=== PATIENT | male | born 1945 | race Caucasian/White ===

== ENCOUNTER 2021-09-28 09:10 | Outpatient (REF) | payer MEDICARE, SELFPAY ==
--- NOTE | 2021-09-28 14:47 | MHC.AU.AEV ---
Adult Audiological Evaluation Date of Visit: 09/28/21 Reason for Appointment: To determine if there has been a change in hearing. Patient reports that he was hospitalized twice for COVID-19. Since then, he has been experiencing memory deficits, and he suspects his hearing has changed as well. He has a pair of Rexton ISAMAR hearing aids he obtained from [employer] approximately 8-9 years ago. Has hearing been tested previously?: Yes Previous Hearing Test Results: At this clinic in 2009- Normal sloping to moderate sensorineural hearing loss bilaterally Hearing Handicap Inventory Does a hearing problem cause you to feel embarrassed when meeting new people?: Yes Does a hearing problem cause you to feel frustrated when talking to members of your family?: Yes Do you have difficulty when someone speaks in a whisper?: Yes Do you feel handicapped by a hearing problem?: Sometimes Does a hearing problem cause you difficulty when visiting friends, relatives, or neighbors?: Yes Does a hearing problem cause you to attend sabianism service services less often than you would like?: No Does a hearing problem cause you to have arguments with family members?: No Does a hearing problem cause you difficulty when listening to TV or radio?: Yes Do you feel that any difficult with your hearing limits or hampers your personal or social life?: Yes Does a hearing problem cause you difficulty when in a restaurants with relatives or friends?: Yes HHIE SCORE: 30 Based on HHIE score, patient has: Severe perceived hearing handicap Ear History: Ear Deformity: None Reported Recent Ear Drainage: None Reported Recent Ear Pain: None Reported Family History of Hearing Loss?: Yes: Father Recent Ear Infections: None Reported Ear Infections in Childhood: None Reported History of Ear Wax Buildup: None Reported Previous Ear Surgery: None Reported Bothersome Tinnitus/Ringing/Noises in Ears: None Reported Ear used on the phone: Right Ear Blocked/Full Sensation in Ear(s): None Reported History of occupational noise exposure?: No History: Yes: [employer]- 2 Years Medical History: Medical History: Hospitalized twice for COVID-19- continues to experience complications including memory deficits Otoscopy: Right Ear: Unremarkable Left Ear: Unremarkable Tympanometry: Tympanometry performed due to: To assess integrity of the middle ear system Right Ear: Reduced Middle Ear Compliance (Type As) Left Ear: Normal Middle Ear System (Type A) Hearing Evaluation: Transducer(s) Used: Insert Earphones Method: Conventional Audiometry Stimuli Used: Pure Tones Right Ear: Description of Hearing: Borderline-normal sloping to severe sensorineural hearing loss Left Ear: Description of Hearing: Borderline-normal sloping to moderately-severe sensorineural hearing loss Speech Recognition Threshold (SRT): Method Used: Recorded Lists Stimuli Used: Spondee Words Right Ear: 30 dBHL Left Ear: 30 dBHL Word Discrimination: Method: Recorded Lists Word Lists Used:: W-22 Right Ear: 72% at 75 dBHL Left Ear: 96% at 75 dBHL Binaural in noise (+10 SNR): 72% at 75 dBHL Most Comfortable Level (MCL): Right Ear: 75 dBHL Left Ear: 70 dBHL Comparison: Compared to most recent evaluation: Thresholds have decreased bilaterally since the 2010 evaluation. Recommendations: Audiological re-evaluation in one year. Patient's hearing aids were given a quick cleaning. The hearing aids cannot be reprogrammed at our clinic, due to their proprietary software. The retention tails were removed at patient's request. The domes were brittle due to their age and could not snap back onto the receivers. We do not stock Rexton domes. For now, large Cole open domes were placed on the receivers, as they fit securely. The hearing aids sound weak, but I cannot determine if this is due to a problem with the hearing aids or if they are programmed with low gain. Discussed the possibilities of obtaining new hearing aids or seeing if his current ones can be inspected/reprogrammed. He would like to first address his current hearing aids before considering new ones. Recommended next steps: -First, call [employer] to say that a recent hearing test showed a decrease in hearing and you would like the hearing aids reprogrammed with the updated results. Ask if there is a cost for the services and if an appointment is needed. Bring a copy of today's hearing test. -If interested in new hearing aids, call your insurance to ask if your plan has any hearing aid benefits. Given your history, you may also want to contact the [facility] to determine if you are eligible for [facility] aid services. -If you would like to proceed with new hearing aids at our clinic, contact us at [phone] to schedule a hearing aid evaluation, where you can demo a pair of hearing aids and talk more in depth about the different options. Diagnosis: Primary Diagnosis: H90.3 Bilateral Sensorineural Hearing Loss Signature: Provider: Ladi Maya, FAROOQ-A
== END 2021-09-28 09:11 | disposition home or self-care (01) ==
LOC: HO.SH 09:10
PROVIDERS: Visit Provider Internal Medicine
DX: Z01.118 Encounter for examination of ears and hearing with other abnormal findings (principal); H90.3 Sensorineural hearing loss, bilateral
CPT/HCPCS: 92557; 92567

== ENCOUNTER 2021-10-04 11:41 | Outpatient (REF) | payer MEDICARE, SELFPAY ==
--- NOTE | ~2021-10-04 | XR_ITS ---
EXAMINATION: XR HAND, BILATERAL XR HIP, LEFT CLINICAL INFORMATION: Left hip pain. Bilateral hand pain. COMPARISON: None TECHNIQUE: Bilateral hand 3 views each. Left hip 2 views. FINDINGS: LEFT HIP: There is no visible acute fracture, dislocation or subluxation. No bony erosive changes. The soft tissues are normal. LEFT HAND: There is no visible acute fracture, dislocation or subluxation. There is loss of PIP and DIP joint space with mild periarticular spurring DIP joint 5th digit. There is minimal bony erosive changes DIP joint 3rd digit. No additional bony erosive changes seen. No abnormal soft tissue swelling. RIGHT HAND: There is mild loss of PIP and DIP joint space all digits without periarticular spurring or joint effusion. No bony erosive changes. No soft tissue swelling. XR/XR hip LT min 2V IMPRESSION: Unremarkable left hip exam. Mild degenerative changes PIP and DIP joints both hands with minimal periarticular spurring DIP joint 5th digit left hand. 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
--- NOTE | ~2021-10-04 | XR_ITS ---
EXAMINATION: XR HAND, BILATERAL XR HIP, LEFT CLINICAL INFORMATION: Left hip pain. Bilateral hand pain. COMPARISON: None TECHNIQUE: Bilateral hand 3 views each. Left hip 2 views. FINDINGS: LEFT HIP: There is no visible acute fracture, dislocation or subluxation. No bony erosive changes. The soft tissues are normal. LEFT HAND: There is no visible acute fracture, dislocation or subluxation. There is loss of PIP and DIP joint space with mild periarticular spurring DIP joint 5th digit. There is minimal bony erosive changes DIP joint 3rd digit. No additional bony erosive changes seen. No abnormal soft tissue swelling. RIGHT HAND: There is mild loss of PIP and DIP joint space all digits without periarticular spurring or joint effusion. No bony erosive changes. No soft tissue swelling. XR/XR hand RT min 3V IMPRESSION: Unremarkable left hip exam. Mild degenerative changes PIP and DIP joints both hands with minimal periarticular spurring DIP joint 5th digit left hand. 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
--- NOTE | ~2021-10-04 | XR_ITS ---
EXAMINATION: XR HAND, BILATERAL XR HIP, LEFT CLINICAL INFORMATION: Left hip pain. Bilateral hand pain. COMPARISON: None TECHNIQUE: Bilateral hand 3 views each. Left hip 2 views. FINDINGS: LEFT HIP: There is no visible acute fracture, dislocation or subluxation. No bony erosive changes. The soft tissues are normal. LEFT HAND: There is no visible acute fracture, dislocation or subluxation. There is loss of PIP and DIP joint space with mild periarticular spurring DIP joint 5th digit. There is minimal bony erosive changes DIP joint 3rd digit. No additional bony erosive changes seen. No abnormal soft tissue swelling. RIGHT HAND: There is mild loss of PIP and DIP joint space all digits without periarticular spurring or joint effusion. No bony erosive changes. No soft tissue swelling. XR/XR hand LT 2V IMPRESSION: Unremarkable left hip exam. Mild degenerative changes PIP and DIP joints both hands with minimal periarticular spurring DIP joint 5th digit left hand. 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
== END 2021-10-04 11:42 | disposition home or self-care (01) ==
LOC: HO.XRAY 11:41
PROVIDERS: PCP Internal Medicine; Visit Provider Internal Medicine
DX: M25.552 Pain in left hip (principal); M79.641 Pain in right hand; M79.642 Pain in left hand
CPT/HCPCS: 73120; 73130; 73502

== ENCOUNTER 2022-07-19 15:44 | Outpatient (REF) | payer MEDICARE, SELFPAY ==
[2022-07-19 17:09] LABS: Vitamin B12 280 pg/mL (200-900)
== END 2022-07-19 15:45 | disposition home or self-care (01) ==
LOC: HO.LAB 15:44
PROVIDERS: PCP Internal Medicine; Visit Provider Psychiatry & Neurology Neurology
DX: G31.84 Mild cognitive impairment of uncertain or unknown etiology (principal)
CPT/HCPCS: 36415; 82607

== ENCOUNTER 2022-07-25 15:03 | Outpatient (REF) | payer MEDICARE, SELFPAY ==
--- NOTE | ~2022-07-25 | US_ITS ---
EXAMINATION: US EXTRACRANIAL CAROTID DUPLEX, BILATERAL CLINICAL INFORMATION: Pulsation in the neck. COMPARISON: None TECHNIQUE: Real-time ultrasound and Doppler techniques (integrating B-mode 2-D vascular images, Doppler spectral analysis and color-flow Doppler imaging) were utilized to interrogate the extracranial carotid arteries, the vertebral arteries and proximal subclavian arteries bilaterally. The degree of stenosis is determined by criteria similar to NASCET. FINDINGS: Right Side: 1. There is mild atherosclerotic plaque seen in the bifurcation/proximal ICA region. 2. The common carotid artery PSV proximally is 86 cm/s and distally 62 cm/s. 3. The proximal internal carotid artery velocities are 33 cm/s systolic and 11 cm/s diastolic. 4. The proximal external carotid artery PSV is 98 cm/s. 5. The vertebral artery shows antegrade flow. 6. The subclavian artery waveforms are normal. Left Side: 1. There is mild atherosclerotic plaque seen in the bifurcation/proximal ICA region. 2. The common carotid artery PSV proximally is 88 cm/s and distally 78 cm/s. 3. The proximal internal carotid artery velocities are 68 cm/s systolic and 22 cm/s diastolic. 4. The proximal external carotid artery PSV is 74 cm/s. 5. The vertebral artery shows antegrade flow. 6. The subclavian artery waveforms are normal. US/US carotid duplex BI IMPRESSION: 1. RIGHT: Minimal, non-hemodynamically significant stenosis of the proximal right internal carotid artery corresponding to a 0-49% stenosis by velocity criteria. 2. LEFT: Minimal, non-hemodynamically significant stenosis of the proximal left internal carotid artery corresponding to a 0-49% stenosis by velocity criteria.
== END 2022-07-25 15:04 | disposition home or self-care (01) ==
LOC: HO.US 15:03
PROVIDERS: PCP Internal Medicine; Visit Provider Psychiatry & Neurology Neurology
DX: I65.23 Occlusion and stenosis of bilateral carotid arteries (principal)
CPT/HCPCS: 93880

== ENCOUNTER 2023-10-18 12:37 | Outpatient (REF) | payer MEDICARE, SELFPAY ==
--- NOTE | ~2023-10-18 | US_ITS ---
EXAMINATION: US SCROTUM CLINICAL INFORMATION: Left testicular pain with question of testicular torsion. COMPARISON: CT abdomen pelvis 11/11/2017, scrotal ultrasound 01/14/2018 TECHNIQUE: A sonogram of the scrotum was performed assessing noyola-scale appearance and color Doppler flow. Spectral Doppler analysis of the arterial and venous flow were performed in the testes bilaterally. FINDINGS: RIGHT: Right testicle measures 5.3 x 2.6 x 2.8 cm, volume 20.2 mL. A small appendix testis is noted. No focal testicular parenchymal lesions are visualized. Spectral Doppler analysis of the arterial and venous flow is normal in the right testis. Right epididymal head is normal in size. No right hydrocele or varicocele is seen. Right epididymal Doppler flow is normal. LEFT: Left testicle measures 3.9 x 2.5 x 3.0 cm, volume 15.1 mL. No focal testicular parenchymal lesions are visualized aside from a single tiny punctate calcification just below the cortex. A small appendix testis is noted. Spectral Doppler analysis of the arterial and venous flow is normal in the left testis. Left epididymal head is normal in size but the tail appears increased in size and hypervascular. There is a small left hydrocele present along with a varicocele is seen. Of note, there is a hyperechoic mass with some vascularity and some rounded ovoid hypoechoic structures within it lateral to the left testis.. This appears to extend at least from the top of the testis to the bottom of the testis. This possibly represents a fat-containing scrotal hernia. On the 12/18/2017 CT scan, a left inguinal hernia was seen with some fat stranding. US/US scrotum doppler IMPRESSION: 1. No evidence of testicular torsion. 2. Possible left epididymitis. 3. Small Left-sided varicocele. 4. There is what appears to be a fat-containing left scrotal hernia. CT scan of the pelvis would be useful for further evaluation. If for any reason the CT scan is done, this should extend beyond the scrotal sac.
[2023-10-18 14:03] LABS: MANUAL DIFF FLAG NO
[2023-10-18 14:52] LABS: Basophils Absolute Auto 0.1 X10*3/uL (0.0-0.2); Basophils Percent Auto 0.4 % (0-2); Eosinophils Absolute Auto 0.2 X10*3/uL (0.0-0.4); Eosinophils Percent Auto 1.4 % (0-4); Hematocrit 43.6 % (42.0-52.0); Hemoglobin 13.5 g/dl (14.0-18.0); Imm Gran Abs Auto 0.04 X10*3/uL (0.00-0.03); Imm Gran Pct Auto 0.3 % (0.0-0.4); Lymphocytes Absolute Auto 1.6 X10*3/uL (1.2-4.9); Lymphocytes Percent Auto 13.4 % (20-40); Mean Corpuscular Hemoglobin 20.3 pg (27.0-33.0); Mean Corpuscular Volume 65.7 fL (80.0-98.0); Mean Platelet Volume 9.8 fL (9.4-12.4); Monocytes Absolute Auto 1.1 X10*3/uL (0.1-1.2); Monocytes Percent Auto 9.5 % (2-11); Platelet Count 192 X10*3/uL (160-400); Red Blood Count 6.64 X10*6/uL (4.60-5.80); Red Cell Distribution Width 20.6 % (11.0-16.0)
== END 2023-10-18 12:38 | disposition home or self-care (01) ==
LOC: HO.US 12:37
PROVIDERS: PCP Internal Medicine; Visit Provider Internal Medicine
DX: R53.83 Other fatigue (principal); N50.82 Scrotal pain
CPT/HCPCS: 36415; 76870; 85025; 93975

== ENCOUNTER 2023-10-22 15:39 | Outpatient (REF) | payer MEDICARE, SELFPAY ==
[2023-10-22 16:10] LABS: Blood Urea Nitrogen 21 mg/dL (9-16); Estimated Glomerular Filt Rate > 60
== END 2023-10-22 15:40 | disposition home or self-care (01) ==
LOC: HO.LAB 15:39
PROVIDERS: PCP Internal Medicine; Visit Provider Internal Medicine
DX: R53.83 Other fatigue (principal)
CPT/HCPCS: 36415; 82565; 84520

== ENCOUNTER 2023-10-23 14:02 | Outpatient (REF) | payer MEDICARE, SELFPAY ==
--- NOTE | ~2023-10-23 | CT_ITS ---
EXAMINATION: CT PELVIS WITH CONTRAST CLINICAL INFORMATION: Hernia/mass. COMPARISON: CT abdomen and pelvis 12/08/2017. TECHNIQUE: Helical scanning was performed with submillimeter collimation through the pelvis with the use of oral contrast and during bolus intravenous injection of 85 mL of Omnipaque 350 intravenous contrast. Sagittal and coronal multiplanar 2-D reconstructions were obtained. This CT examination was performed using dose optimization techniques as appropriate, variously including the following: *Automated exposure control *Adjustment of mA and/or kV according to patient size (this includes techniques or standardized protocols for targeted exams where dose is matched to indication/reason for exam; i.e. extremities or head) *Use of iterative reconstruction technique DLP: 612 mGy-cm. FINDINGS: There is a tiny periumbilical hernia seen containing only fat, unchanged when compared to 12/08/2017. There are small bilateral indirect inguinal hernias seen containing only fat, left greater than right. There is moderate BPH with prostate measuring 90 mL in volume, with a prominent median lobe. The visualized bowel is unremarkable aside from a few scattered colonic diverticula. The appendix is small and unremarkable. No free pelvic fluid. Degenerative changes are seen in the included portions of the lumbosacral spine. No bony destructive lesions. No retroperitoneal lymphadenopathy. Calcific atherosclerotic changes are present in the aorta and iliofemoral vessels. There is no evidence of an abdominal aortic aneurysm. CT/CT pelvis w IV con IMPRESSION: 1. Small bilateral indirect inguinal hernias containing only fat, left greater than right. 2. Tiny periumbilical hernia containing only fat. 3. Moderate BPH.
[2023-10-23] MEDS: iohexoL 350 MG/ML 100 ML INFUS..BTL IV (14:55)
== END 2023-10-23 14:03 | disposition home or self-care (01) ==
LOC: HO.CT 14:02
PROVIDERS: PCP Internal Medicine; Visit Provider Internal Medicine
DX: K40.90 Unilateral inguinal hernia, without obstruction or gangrene, not specified as recurrent (principal)
CPT/HCPCS: 72193; Q9967

== ENCOUNTER 2023-12-05 10:57 | Outpatient (AMB) | payer MEDICARE, SELFPAY ==
--- NOTE | 2023-12-05 11:00 | MHC.OFFVIS ---
Intake Visit Reasons: epididymitis/varicocele/hydrocele/scrotal hernia Intake Note: Patient is present for epididymitis/varicocele/hydrocele/scrotal hernia Urology Medication:none Antibiotic Allergy:none Blood Thinner:none Batchmaker Required: No Allergies No Known Allergies Allergy (Mild, Verified 12/05/23 13:11) NOT APPLICABLE Medication List - Last Reconciled 12/05/23 by SONALI Carrion losartan 100 mg PO DAILY methylphenidate HCl mg PO metoprolol succinate ER 100 mg PO DAILY metoprolol succinate ER 50 mg PO DAILY triamcinolone acetonide 0.1% 1 appl topical BID-TID HPI Comments Details: Sukhdeep is a 78-year-old male patient of Dr. Siegel who was accompanied by his ex- at today's office visit. He has a past medical history of high blood pressure. He presents to the office today as a new patient for an enlarged prostate and varicoceles. In discussion with the patient today he reports and believes today's appointment is for assessment of his skin. Throughout today's appointment he continues to discuss ongoing issues with his skin that he believes are related to his cat. He continues to perseverate on this issue. In review of patient's chart it appears scrotal ultrasound and pelvic CT were ordered by his PCP as he had been having scrotal discomfort. He reports this has since subsided. His main concern is his ongoing generalized rash she has been experiencing. These imaging results were reviewed with the patient today. Scrotal ultrasound 10/25 no evidence of testicular torsion, possible left epididymitis, small left-sided varicocele, and there is what appears to be fat containing left scrotal hernia at which time scrotal ultrasound results recommending further CT for further assessment and evaluation. CT pelvis notes small bilateral indirect inguinal hernias containing only fat, left greater than right. Tiny periumbilical hernia containing only fat. Moderate BPH as prostate measures approximately [address] of the pelvis. He continues to deny any urological issues or concerns and truly believed todays appointment was for dermatology. In assessment of the patient today varicoceles noted throughout the scrotum otherwise no pain or open areas noted to the penis, scrotum, and or testicles. In office urinalysis results reviewed with the patient today. Discussed further treatment options for enlarged prostate noted on recent imaging. He otherwise offers no other issues or concerns at this time. Review of Systems Const All systems reviewed & are unremarkable except as noted in HPI and below Physical Exam Const General: cooperative, healthy appearing, comfortable, no acute distress, well developed, alert and awake Orientation/consciousness: patient oriented x3 Limitations: no limitations HEENT Head: Yes normal to inspection, Yes normocephalic and Yes atraumatic Ears: hearing grossly normal bilaterally Eyes General: appearance normal, both eyes and all related structures Neck Neck: Yes normal visual inspection and Yes trachea midline Chest Chest palpation & inspection: normal inspection of the chest Resp Effort & Inspection: normal respiratory effort and able to speak in complete sentences Cardio Rate: regular rate GI Inspection: Yes normal to inspection General: Yes no CVA tenderness Back/Spine/Pelvis Back: no CVA tenderness Skin General skin exam: no rashes or lesions noted Neuro General: patient oriented x3 Extrem General: Yes normal to inspection Psych Appearance: grossly normal and well kempt Mental Status: other (Perseverating) Speech and movement: Normal speech and movement present and Clear speech present Attitude: cooperative Thought process: Perseverating thought process present Thought content: Normal thought content present Insight: Fair insight present (Psych) Judgement: Fair judgement present (Psych) Results AMB Urinalysis, Automated UA Leukoctes 0 Layne/uL Last Edit by ADIA Cruz on 12/05/23 11:28 UA Nitrite Negative Last Edit by ADIA Cruz on 12/05/23 11:28 UA Urobilinogen 0.2 mg/dL Last Edit by ADIA Cruz on 12/05/23 11:28 UA Protein 15 mg/dL Last Edit by ADIA Cruz on 12/05/23 11:28 UA pH 6.0 Last Edit by ADIA Cruz on 12/05/23 11:28 UA Blood 25 Bari/uL Last Edit by ADIA Cruz on 12/05/23 11:28 UA Specific Bow 1.030 Last Edit by ADIA Cruz on 12/05/23 11:28 UA Ketone Negative Last Edit by ADIA Cruz on 12/05/23 11:28 UA Bilirubin 0 mg/dL Last Edit by ADIA Cruz on 12/05/23 11:28 UA Glucose 0 mg/dL Last Edit by Christian Bowie [facility] on 12/05/23 11:28 Results Reviewed Results Reviewed: Laboratory Last Values Urine pH (Auto) 6.0 12/05/23 11:27 Specific Bow (Auto) 1.030 12/05/23 11:27 Urine Protein (Auto) 15 mg/dL 12/05/23 11:27 Glucose (UA)(Auto) 0 mg/dL 12/05/23 11:27 Urine Ketones (Auto) Negative 12/05/23 11:27 Urine Blood (Auto) 25 Bari/uL 12/05/23 11:27 Urine Nitrite (Auto) Negative 12/05/23 11:27 Urine Bilirubin (Auto) 0 mg/dL 12/05/23 11:27 Urine Urobilinogen (Auto) 0.2 mg/dL 12/05/23 11:27 Leukocyte Esterase (Auto) 0 Layne/uL 12/05/23 11:27 Date of Service: 10/18/23 EXAMINATION: US SCROTUM FINDINGS: RIGHT: Right testicle measures 5.3 x 2.6 x 2.8 cm, volume 20.2 mL. A small appendix testis is noted. No focal testicular parenchymal lesions are visualized. Spectral Doppler analysis of the arterial and venous flow is normal in the right testis. Right epididymal head is normal in size. No right hydrocele or varicocele is seen. Right epididymal Doppler flow is normal. LEFT: Left testicle measures 3.9 x 2.5 x 3.0 cm, volume 15.1 mL. No focal testicular parenchymal lesions are visualized aside from a single tiny punctate calcification just below the cortex. A small appendix testis is noted. Spectral Doppler analysis of the arterial and venous flow is normal in the left testis. Left epididymal head is normal in size but the tail appears increased in size and hypervascular. There is a small left hydrocele present along with a varicocele is seen. Of note, there is a hyperechoic mass with some vascularity and some rounded ovoid hypoechoic structures within it lateral to the left testis.. This appears to extend at least from the top of the testis to the bottom of the testis. This possibly represents a fat-containing scrotal hernia. On the 12/18/2017 CT scan, a left inguinal hernia was seen with some fat stranding. IMPRESSION: 1. No evidence of testicular torsion. 2. Possible left epididymitis. 3. Small Left-sided varicocele. 4. There is what appears to be a fat-containing left scrotal hernia. CT scan of the pelvis would be useful for further evaluation. If for any reason the CT scan is done, this should extend beyond the scrotal sac. Date of Service: 10/23/23 EXAMINATION: CT PELVIS WITH CONTRAST FINDINGS: There is a tiny periumbilical hernia seen containing only fat, unchanged when compared to 12/08/2017. There are small bilateral indirect inguinal hernias seen containing only fat, left greater than right. There is moderate BPH with prostate measuring 90 mL in volume, with a prominent median lobe. The visualized bowel is unremarkable aside from a few scattered colonic diverticula. The appendix is small and unremarkable. No free pelvic fluid. Degenerative changes are seen in the included portions of the lumbosacral spine. No bony destructive lesions. No retroperitoneal lymphadenopathy. Calcific atherosclerotic changes are present in the aorta and iliofemoral vessels. There is no evidence of an abdominal aortic aneurysm. IMPRESSION: 1. Small bilateral indirect inguinal hernias containing only fat, left greater than right. 2. Tiny periumbilical hernia containing only fat. 3. Moderate BPH. Assessment & Plan Assessment & Plan (1) BPH (benign prostatic hyperplasia): Code(s): N40.0 - Benign prostatic hyperplasia without lower urinary tract symptoms Category: Medical (2) Enlarged prostate: Code(s): N40.0 - Benign prostatic hyperplasia without lower urinary tract symptoms Category: Medical (3) Varicocele: Code(s): I86.1 - Scrotal varices Category: Medical Plan In office urinalysis results reviewed with the patient today; as noted above. Recent scrotal ultrasound and pelvic CT results reviewed with the patient and his ex- today; as noted above. Patient denies any bothersome urinary issues or concerns. Patient reports scrotal discomfort he had been experiencing has since subsided. Discussed at length potential causes of varicoceles as well as enlarged prostate Discussed further treatment options however patient declines at this time. Patient reports be happy with current voiding parameters. Will obtain PSA. Follow-up in 1 year; or sooner with any issues, concerns, and or questions. Orders: Orders AMB Urinalysis Automated 12/05/23 Z13.9 - Encounter for screening, unspecified Prostate Specific Antigen 12/05/23 N40.0 - Benign prostatic hyperplasia without lower urinary tract symptoms Patient Instructions: The patient had an opportunity to ask questions regarding the treatment plan. All questions were answered. Physical exam, labs, and imaging were discussed and reviewed in detail. As well as risks, benefits, and discussion of treatment choices. No major barriers to understanding were identified. The patient expressed understanding and agreement with the above treatment plan. The patient was made aware they should contact our office by phone for worsening of their current condition, the appearance of new symptoms, or with any questions or concerns. Compliance is encouraged with any medications and follow up testing that is ordered. It is a privilege to be allowed the opportunity to participate in? your urological care.? Again, if you have any questions or concerns If you have any questions or concerns please do not hesitate to contact me. The office is [phone]. This note is constructed using voice recognition software. While every effort has been made to ensure accuracy pneumatic system conveyor operator errors may have been included. Yours sincerely, SONALI Carrion Coding Level of Care Code New Pt Level 4 (46797) Diagnoses BPH (benign prostatic hyperplasia) N40.0 Enlarged prostate N40.0 Varicocele I86.1 Time Spent (min) 40
== END 2023-12-05 12:05 | disposition home or self-care (01) ==
PROVIDERS: PCP Internal Medicine; Visit Provider Nurse Practitioner Family
DX: N40.0 Benign prostatic hyperplasia without lower urinary tract symptoms (principal); I86.1 Scrotal varices
CPT/HCPCS: 99204

== ENCOUNTER → 2023-12-05 10:57 | Outpatient (BNVA) | payer MEDICARE, SELFPAY | PROVIDERS: PCP Internal Medicine; Visit Provider Nurse Practitioner Family | DX: N40.0 Benign prostatic hyperplasia without lower urinary tract symptoms (principal); I86.1 Scrotal varices | CPT/HCPCS: 81003; 99202 ==

== ENCOUNTER 2024-10-02 10:58 | Outpatient (AMB) | payer MEDICARE, SELFPAY ==
--- NOTE | 2024-10-02 11:00 | A.OFFPC_ITS ---
Vital Signs 10/02/24 11:08 Height 5 ft 4.5 in Weight 156 lb BMI 26.4 BP 132/72 Blood Pressure Location Rt brachial Position Sitting Respiration 12 Pulse 66 Pulse Source Pulse Oximeter Temp 97.3 F Temp Source Oral Pulse Oximetry (%) 99 Oxygen Delivery Method Room Air Intake Visit Reasons: Est. Care Intake Note: New patient to establish care Rat Farmer Required: No Allergies No Known Allergies Allergy (Mild, Verified 10/02/24 11:19) NOT APPLICABLE Medication List - Last Reconciled 10/02/24 by Salud Jeter, BEE FARMER- losartan 100 mg PO DAILY methylphenidate HCl mg PO metoprolol succinate ER 100 mg PO DAILY metoprolol succinate ER 50 mg PO DAILY triamcinolone acetonide 0.1% 1 appl topical BID-TID Tobacco use date assessed: 10/02/24 Fall risk assessment: No Falls in past year Last assessed Fall Risk: 10/02/24 Dental Screening Dental Screen Date: 10/02/24 Did you have a dental visit in the last 12 months?: Yes Did you have a dental problem in the last 6 months where you did not have access to dental care?: No Was dental information given to patient?: Patient has dentist HPI HPI Comments History of Present Illness Details Luke 78 y/o M with ADHD, Dementia , GERD, rhi norrhea, OA, BPH, epididymitis/varicocele/hydrocele/scrotal hernia, HTN, Anemia, CAD (Carotid US mild atherosclerotic plaque 2022, CT pelvis 10/2023 calcific atherosclerotic changes are present in the aorta and iliofemoral vessels.) Asthma/COPD, NILDA s/p repair of detached retinaL 2009, bilat cataracts, L inguinal hernia SurgHx: FHx: 3 children 2 boys 1 gir; Brother age 82 with prostate ca 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 Colon: Vaccines AAA screen EKG: [place] of Care: Uro Pulm History of Present Illness Previous PCP records rec'd and reviewed - The patient is a 78-year-old male pres enting to [facility], accompanied by Ex Suly, who provides some history; CC: cognitive changes and memory loss. - Cognitive changes, including memory lo ss and articulation difficulties, commenced following a COVID-19 infection about five years ago. 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 - Memory impairment has introduced chall enges in recounting events or newly acquired information. 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 - Past sleep apnea diagnosis, previously advised CPAP use which is currently not utilized. - Reports good sleep despite diagnosis o f sleep apnea in 2021. - His dementia, diagnosed by a primary p hysician, is noted as mild and not assessed by neurology. - Regular treatment for hypertension and coronary artery disease with metoprolol and losartan. - ADHD managed with methylphenidate, unt il recent discontinuation. He reports big change in his memory; his ex does not correlate that. He has been off for months. Physical Exam General: Well developed, well nourished, in no acute distress. Head: Normocephalic, atraumatic. Eyes: Pupils are equal, round and reactive to light and accommodation. Conjunctivae are clear. Vision grossly normal. Lungs: Clear to auscultation bilaterally. No rales, rhonchi or wheeze noted. Good air flow in all [place]. Heart: Regular rate and rhythm. No murmurs, click, rubs or gallops are noted. Psych: Mood and affect appropriate. Repeats self. Everything you just said to me went out the window , defers to Suly to take notes. Requires redirection, can perseverate on things and easily gets losts in conversation. Results Labs ordered and pending Initial review shows abnormal CBC I called the lab and asked them to add on LDH, CRP, Sed rate and PSA to further evaluate. Discussion Notes During today's visit, I discussed the patient's cognitive decline, memory issues, and the impact of past COVID-19 infection on these symptoms with him. We talked about the potential benefit of re-evaluating his sleep apnea diagnosis with an updated sleep study to ascertain its current status and the possible need for a CPAP machine to improve oxygenation, which could aid cognitive function. Emphasized the role of consistent use of hearing aids in enhancing environmental interaction and memory retention ? a point noted due to his diagnosis of mild hearing loss, though unmentioned if formally tested. There were no recent neurologist assessments for the patient's dementia; thus, I recommended considering consulting one for further evaluation. Medication history discussed included the understanding that methylphenidate aids his cognitive sharpness, and deciding discontinuation effects will align management toward improved memory and cognitive performance without adverse effects. Results from screening labs could inform further. Recommended interventions and patient follow-up planning were explained to ensure coherence with the treatment regimen and his understanding was verified. Assessment and Plan 1. Cognitive Decline To address the cognitive changes linked with post-COVID symptoms, a repeat sleep study was ordered to confirm if obstructive sleep apnea persists. The importance of using hearing aids daily was emphasized to augment environmental interaction and enhance memory function. 2. Mild Dementia A mild dementia diagnosis from primary care records was acknowledged, and a potential neurology evaluation was suggested to offer a more nuanced understanding and personalized management strategy. 3. History of ADHD The cognitive benefits of methylphenidate were reviewed; purported cognitive sharpness improvements post-resumption may prove valuable, pending favorable lab results. 4. Hypertension and Coronary Artery Dise ase Ongoing cardiovascular management through controlled medication regimens was noted, with an emphasis on consistent regimen adherence. 5. Benign Prostatic Hyperplasia (BPH) Urology follow-up in December for BPH was acknowledged, with no new action suggested until the review. 6. Hearing Aids Urged consistent hearing aid use as periodical usage might detract from auditory processing, contributing to cognitive discrepancies. 7. Labs and Evaluations Comprehensive baseline labs were ordered to gauge current health metrics, including cognitive health screenings. RTO in 6 weeks to review sleep study results and labs. Need to consider Heme referral based on lab results. There is a family hx of prostate ca in his brother, dx age 82. PSA pending. Patient Instructions - Complete all scheduled lab tests today before leaving. - Expect a call for the home sleep study setup; use the machine as instructed for accurate assessment. - Use your hearing aids every day to hel p improve memory and cognition. - Continue to follow up with your urolog ist for BPH care. - Schedule a follow-up appointment with me in six weeks. - Regularly review medication with your healthcare team to optimize treatment. Consent Patient was informed and verbally consented to the use of an ambient scribe for clinic note documentation during this visit. Total time spent caring for the patient today was 60 minutes. This includes time spent before the visit reviewing the chart, time spent during the visit, and time spent after the visit on documentation, reviewing laboratory results, diagnostic imaging, medications, performing a medically necessary evaluation, counseling on diagnoses, care coordination, ordering appropriate tests, ordering appropriate medications, review of tests performed by other providers, reporting test results with the patient, communication with other healthcare providers. [facility] Medical History (Updated 10/02/24 @ 17:20 by Salud Jeter [facility]) No pertinent family history Sinusitis Surgical History (Updated 10/02/24 @ 12:10 by Joyce Vitale MA) No pertinent past surgical history Social History (Updated 10/02/24 @ 11:13 by Joyce Vitale MA) Household Members: Spouse Both parents involved: No Caregiver staying overnight: No Housing: Apartment Are you a primary career development manager to a significant other at home: No Do you presently have visiting nurse or other home services: No 75 years or older and lives alone: No Alcohol intake: never Patient Tobacco Use Status: Never used Tobacco e-Cigarette/Vaping Use: Never Used Second Hand Smoke Exposure: No service: No Current occupational status: retired Cognitive needs: Yes Hearing needs: No Vision needs: Yes (wear glasses) Questionnaire PHQ-9 Over the last 2 weeks, how often have you been bothered by any of the following problems? 1. Little interest or pleasure in doing things: not at all 2. Feeling down, depressed, or hopeless: not at all 3. Trouble falling or staying asleep, or sleeping too much: not at all 4. Feeling tired or having little energy: not at all 5. Poor appetite or overeating: not at all 6. Feeling bad about yourself - or that you are a failure or have let yourself or your family down: not at all 7. Trouble concentrating on things, such as reading the newspaper or watching television: not at all 8. Moving or speaking so slowly that other people could have noticed. Or the opposite - being so fidgety or restless that you have been moving around a lot more than usual: not at all 9. Thoughts that you would be better off or of hurting yourself in some way: not at all Total score: 0 Depression Screening Interpretation: Negative Depression Screening Done: Yes 76222 - PHQ-9 Billing: Yes Source: Developed by Drs. Zen Cortez, Sheila Morales, Joel Song and colleagues, with an educational oscar from [employer]. Thrive Questionnaire Date Thrive assessed: 10/02/24 I am a: Patient What is your living situation today?: I have a steady place to live Within the past 12 months, did the food you bought not last and you didn't have the money to get more?: Often true Within the past 12 months, did you worry whether your food would run out before you got money to buy more?: I choose not to answer this question Do you have trouble paying for medicines?: No Do you have trouble getting transportation to medical appointments?: No Do you have trouble paying your heating and electricity bill?: No Do you have trouble taking care of your child, family member or friend?: No Do you have trouble with day-to-day activities such as bathing, preparing meals, shopping, managing finances, etc.?: No Are you currently unemployed and looking for a job?: No Are you interested in more education?: No Please select the resources that you would like help with: None Currently or been in a relationship where the following occur: No concerns reported THRIVE Score: 1 AUDIT C Alcohol Use Questionnaire (AUDIT-C) 1. How often do you have a drink containing alcohol?: Never 3. How often do you have six or more drinks on one occasion?: Never Total Score: 0 Score Reviewed/Action Taken: Yes GILES-7 AMB Questionnaire GILES-7 Date GILES - 7 assessed: 10/02/24 Feeling nervous, anxious, or on edge: 0 = Not at all Not being able to stop or control worryin = Not at all Worrying too much about different things: 0 = Not at all Trouble relaxin = Not at all Being so restless that it is hard to sit still: 0 = Not at all Becoming easily annoyed or irritable: 0 = Not at all Feeling afraid as if something awful might happen: 0 = Not at all Total GILES-7 score (0-4 normal; 5-9 mild; 10-14 moderate; 15-21 severe): 0 Source: Developed by Drs. Zen Cortez, Sheila Morales, Joel Song and colleagues, with an educational oscar from [employer]. GILES-7 Assessment Billing GILES-7 Assessment Tool: GILES-7 Assessment 00774 Physical exam (Primary Care) Vital Signs: Last Vital Signs Temp 97.3 F 10/02/24 11:08 Pulse 66 10/02/24 11:08 Resp 12 10/02/24 11:08 BP 132/72 10/02/24 11:08 Pulse Ox 99 10/02/24 11:08 Oxygen Delivery Method Room Air 10/02/24 11:08 BMI result Body Mass Index 26.4 Tobacco/Smoking Status: Tobacco use Status Tobacco use date assessed 10/02/24 10/02/24 11:08 Patient Tobacco Use Status Never used Tobacco 10/02/24 11:13 e-Cigarette/Vaping Use Never Used 10/02/24 11:13 PHQ-9: PHQ-9 Score PHQ-9: Total score 0 10/02/24 12:10 Depression Screening Interpretation: Negative Thrive Assessment: Date of Thrive Assessment Date Thrive assessed 10/02/24 10/02/24 11:04 Currently or been in a relationship where the following occur: No concerns reported Coding Level of Care Code New Pt Level 5 (57672) Complex EM visit Add On G2211 Diagnoses Encounter to establish care Z76.89 Mild dementia without behavioral disturbance, psychotic disturbance, mood disturbance, or anxiety, unspecified dementia type F03.A0 Dementia type: unspecified type Dementia severity: mild Dementia behavioral or psychological symptom: without behavioral, psychotic, or mood disturbance or anxiety NILDA (obstructive sleep apnea) G47.33 Attention deficit hyperactivity disorder (ADHD), predominantly inattentive type F90.0 Attention deficit-hyperactivity disorder type: predominantly inattentive Sensorineural hearing loss (SNHL) of both ears H90.3 Hearing loss type: sensorineural Laterality: bilateral Elevated ferritin R79.89 Abnormal CBC R79.89 Benign prostatic hyperplasia without lower urinary tract symptoms N40.0 Lower urinary tract symptom presence: symptoms absent Primary hypertension I10 Hypertension type: primary hypertension Additional Codes GILES-7 Assessment Billing - GILES-7 Assessment Tool: GILES-7 Assessment 17115 ([id number]) PHQ-9 - 31481 - PHQ-9 Billing: Yes ([id number]) Assessment & Plan Assessment & Plan (1) Encounter to establish care: Code(s): Z76.89 - Persons encountering health services in other specified circumstances (2) Dementia: Code(s): F03.90 - Unspecified dementia, unspecified severity, without behavioral disturbance, psychotic disturbance, mood disturbance, and anxiety Category: Medical Qualifiers: Dementia type: unspecified type Dementia severity: mild Dementia behavioral or psychological symptom: without behavioral, psychotic, or mood disturbance or anxiety Qualified Code(s): F03.A0 - Unspecified dementia, mild, without behavioral disturbance, psychotic disturbance, mood disturbance, and anxiety (3) NILDA (obstructive sleep apnea): Code(s): G47.33 - Obstructive sleep apnea (adult) (pediatric) Category: Medical (4) ADHD: Code(s): F90.9 - Attention-deficit hyperactivity disorder, unspecified type Category: Medical Qualifiers: Attention deficit-hyperactivity disorder type: predominantly inattentive Qualified Code(s): F90.0 - Attention-deficit hyperactivity disorder, predominantly inattentive type (5) Hearing loss: Code(s): H91.90 - Unspecified hearing loss, unspecified ear Category: Medical Qualifiers: Hearing loss type: sensorineural Laterality: bilateral Qualified Code(s): H90.3 - Sensorineural hearing loss, bilateral (6) Elevated ferritin: Code(s): R79.89 - Other specified abnormal findings of blood chemistry Category: Medical (7) Abnormal CBC: Code(s): R79.89 - Other specified abnormal findings of blood chemistry Category: Medical (8) BPH (benign prostatic hyperplasia): Code(s): N40.0 - Benign prostatic hyperplasia without lower urinary tract symptoms Category: Medical Qualifiers: Lower urinary tract symptom presence: symptoms absent Qualified Code(s): N40.0 - Benign prostatic hyperplasia without lower urinary tract symptoms (9) HTN (hypertension): Code(s): I10 - Essential (primary) hypertension Category: Medical Qualifiers: Hypertension type: primary hypertension Qualified Code(s): I10 - Essential (primary) hypertension Plan , Orders: Orders RT home sleep study Today F03.90 - Unspecified dementia, unspecified severity, without behavioral disturbance, psychotic disturbance, mood disturbance, and anxiety, G47.33 - Obstructive sleep apnea (adult) (pediatric), R06.83 - Snoring Complete Blood Count no Diff Today F03.90 - Unspecified dementia, unspecified severity, without behavioral disturbance, psychotic disturbance, mood disturbance, and anxiety Comprehensive Met. Panel Today F03.90 - Unspecified dementia, unspecified severity, without behavioral disturbance, psychotic disturbance, mood disturbance, and anxiety Hemoglobin A1c Today F03.90 - Unspecified dementia, unspecified severity, without behavioral disturbance, psychotic disturbance, mood disturbance, and anxiety Lipid Panel Today - Unspecified dementia, unspecified severity, without behavioral disturbance, psychotic disturbance, mood disturbance, and anxiety Microalbumin, Random (w Creat) Today - Unspecified dementia, unspecified severity, without behavioral disturbance, psychotic disturbance, mood d isturbance, and anxiety Vitamin B12 and Folate Today - Unspecified dementia, unspecified severity, without behavioral disturbance, psychotic disturbance, mood disturb ance, and anxiety Syphilis Screen Today - Unspecified dementia, unspecified severity, without behavioral disturbance, psychotic disturbance, mood disturbance, and anx iety HIV Ab/Ag Today - Unspecified dementia, unspecified severity, without behavioral disturbance, psychotic disturbance, mood disturbance, and anxiety Ferritin Today - Unspecified dementia, unspecified severity, without behavioral disturbance, psychotic disturbance, mood disturbance, and anxiety IRON PROFILE Today - Unspecified dementia, unspecified severity, without behavioral disturbance, psychotic disturbance, mood disturbance, and anxiety TSH reflex Free T4 Today - Unspecified dementia, unspecified severity, without behavioral disturbance, psychotic disturbance, mood disturbance, and anxiety Vitamin D 25-OH Total Today - Unspecified dementia, unspecified severity, without behavioral disturbance, psychotic disturbance, mood disturbance, and anxiety UA CC w/rflx Micro + Cult Today - Unspecified dementia, unspecified severity, without behavioral disturbance, psychotic disturbance, mood disturbance, and anxiety Patient Instructions: - Consider Tdap at next visit - Complete all scheduled lab tests today before leaving. - Expect a call for the home sleep study setup; use the machine as instructed for accurate assessment. - Use your hearing aids every day to help improve memory and cognition. - Continue to follow up with your urologist for BPH care. - Schedule a follow-up appointment with me in six weeks. Walk-In Care (Urgent Care): We Make it Easy Walk-in for urgent medical issues such as: ? Seasonal Allergies ? Insect Bites ? Cough ? Diarrhea ? Acute Asthma Attacks ? Back, Knee or Joint Pain ? Ear Infection ? Fever without a Rash ? Headaches ? Nausea ? Robards Eye, Rash or Skin Irritation ? Sore Throat ? Sports Physicals ? Vomiting Most insurances are accepted. Patients do not need to be part of the [facility] to seek care at the walk-in clinic. Locations [address] [facility] [place] [address] ? [phone] [facility] Walk-In Care in [place] provides services to ages 18 and over. Open Sunday-Sunday: 8 a.m. to 5 p.m. and Sunday: 9 a.m. to 3 p.m.* *Hours may vary due to staffing availability. To confirm Walk-In Care hours in [place], please call [phone]. [address] [place] [address] ? [phone] [facility] Walk-In Care in [place] provides services to ages 12 and over. Open Sunday-Sunday: 8 a.m. to 5 p.m. Hours may vary due to staffing availability. To confirm Walk-In Care hours in [place], please call [phone]. LABORATORY SERVICES: [facility] [place] [place] Lab ? Primary Location [address] [place] [address] Sunday through Sunday 6:00 AM ? 5:00 PM Sunday 7:00 AM ? 11:00 AM* [phone] The [facility] [place] [place] Lab is centrally located near the front entrance of the [facility] for easy outpatient access. Convenient parking is provided for outpatients. *Hours may vary due to staffing availability. To confirm Laboratory hours for any location, please call [phone]. Offsite Location For your convenience, we offer offsite laboratory draw stations at the following locations: [address] [place] [address] ? [address], [address] Sunday through Sunday 7:30 AM ? 1:00 PM* [phone] *Hours may vary due to staffing availability. To confirm Laboratory hours for any location, please call [phone]. [place] ? [address] Sunday through Sunday 6:00 AM ? 3:30 PM* Sunday 6:30 AM ? 3 PM* [phone] *Hours may vary due to staffing availability. To confirm Laboratory hours for any location, please call [phone] [place] [address] Sunday through Sunday 7:30 AM ? 4:00 PM* [phone] *Hours may vary due to staffing availability. To confirm Laboratory hours for any location, please call [phone] [place] [address] Sunday through 9:00 AM ? 4:00 PM* *Hours may vary due to staffing availability. To confirm Laboratory hours for any location, please call [phone]. Appointments are not necessary. Walk-ins are welcome. Like all the departments throughout the [facility], our Lab undergoes frequent reviews to ensure the quality and accuracy of test results, and our staff takes special pride in its status as a nationally accredited facility. Patient Portal: ONE PATIENT. ONE RECORD. BETTER CARE. [facility] has a fully integrated, cutting- edge mobile electronic health information system that has revolutionized the way we care for our patients and manage our organization. This system improves communication and coordination enabling us to provide safe, higher-quality care, and an overall positive experience for staff and patients. Our first priority, as always, is to deliver the highest quality care possible. The system is running in the background supporting that priority. This portal is for all [facility] services and practices. If you are experiencing any technical difficulties with enrolling or logging into the Patient Portal please complete the [facility] [place] [place] Patient Portal Technical Support Form. [facility] now offers a new secure on-line interactive tool for patients to review their health information ? Patient Portal. This interactive web portal will enable patients and their families to take an active role in their care by providing easy, secure access to their health information via the internet. The Patient Portal provides patients with instant access to their health information, including laboratory results, medications, allergies, demographic information, visit history, and more. In addition to managing their own care, parents and health care proxies with authorized consent will appreciate the ability to access the records of those individuals for whom they provide care. Please note: if you wish to gain access (Proxy) to another patient?s portal, you will be required to come to the Medical Records Department in person at [facility]. Both the patient giving proxy access and the proxy will need to provide photo identification and complete the appropriate authorization. The Patient Portal also allows track their appointments online. The [facility] [place] [place] Patient Portal also saves patients time by allowing them to submit updates to their demographic and contact information prior to their visits. Portal email notifications will also alert patients to any new activity on their portal, such as test results and new appointments. In order to initially enroll in the [facility] [place] [place] Patient Portal, you will need to enter some required information including the following: ? your [facility] [place] [place] Medical Record number ? your personal home email address ? name ? date of Please note: In order to enroll in the [facility] [place] [place] Patient Portal, we need to have your email address on file in your electronic medical record. The email address needs to be specific for one person (yourself) in order for your Portal enrollment to be successful. You can update your email address in person with our Registration staff when you are registering for a hospital visit. Otherwise, you will need to come to the Health Information Management (Medical Records) Department at [facility]. We are open from Sunday ? Sunday from 7:30 a.m. ? 4:30 p.m. You will be required to present a photo id. Once you have successfully enrolled in the Patient Portal, you will receive a one-time user id and password for the Portal, sent to your email address. This will allow you to log into the Patient Portal within 99 hrs and reset your own logon id and password, and define personal security questions. Once your permanent login and password have been set, you can log into the [facility] [place] [place] Patient Portal at any time via the blue button above or from the Portal Logon button on any page of the [facility] website. [facility] and [facility] encourage all of our patients to enroll in Patient Portal as it presents a valuable opportunity for patients and their families to actively participate in their care and stay healthy Welcome to [facility]. We look forward to working with you.
[2024-10-02 11:08] VITALS: BP 132/72; PULSE 66; RESP 12; TEMP 36.3; O2SAT 99; BMI 26.4
== END 2024-10-02 12:17 | disposition home or self-care (01) ==
LOC: HO.HMCFM 10:59
PROVIDERS: PCP Nurse Practitioner Family; Visit Provider Nurse Practitioner Family
DX: G47.33 Obstructive sleep apnea (adult) (pediatric) (principal); Z76.89 Persons encountering health services in other specified circumstances; F03.A0 Unspecified dementia, mild, without behavioral disturbance, psychotic disturbance, mood disturbance, and anxiety; F90.0 Attention-deficit hyperactivity disorder, predominantly inattentive type; H90.3 Sensorineural hearing loss, bilateral; R79.89 Other specified abnormal findings of blood chemistry; N40.0 Benign prostatic hyperplasia without lower urinary tract symptoms; I10 Essential (primary) hypertension

== ENCOUNTER 2024-10-02 10:58 | Outpatient (REF) | payer MEDICARE, SELFPAY | END 2024-10-02 10:59 | disposition home or self-care (01) | LOC: HO.LAB 10:58 | PROVIDERS: PCP Nurse Practitioner Family; Visit Provider Nurse Practitioner Family | DX: Z13.89 Encounter for screening for other disorder (principal) ==

== ENCOUNTER 2024-10-02 11:59 | Outpatient (REF) | payer MEDICARE, SELFPAY ==
[2024-10-02 14:26] LABS: Hematocrit 41.9 % (42.0-52.0); Hemoglobin 12.9 g/dl (14.0-18.0); Mean Corpuscular HGB Conc 30.8 g/dl (31.0-36.0); Mean Corpuscular Hemoglobin 20.8 pg (27.0-33.0); Mean Corpuscular Volume 67.7 fL (80.0-98.0); Mean Platelet Volume 8.7 fL (9.4-12.4); Platelet Count 229 X10*3/uL (160-400); Red Blood Count 6.19 X10*6/uL (4.60-5.80); White Blood Count 6.2 X10*3/uL (4.8-10.8)
[2024-10-02 14:34] LABS: Appearance Urine Clear; Color Urine Dark Yellow; Glucose Urine UA Negative (Negative); Leukocyte Esterase Urine Negative (Negative); Nitrite Urine Negative (Negative); PH 6.5 (5.0-9.0); Specific Gravity - Urine 1.025 (1.005-1.025); Urine Blood Negative (Negative); Urine Ketones Trace mg/dL (Negative); Urine Protein Negative (Neg-Trace)
[2024-10-02 14:44] LABS: Estimated Average Glucose 94 mg/dL; Hemoglobin A1C 102.3123 umol/L; Hemoglobin A1c % 4.9 % (<6.0); Total Hemoglobin (HGBA1C) 3451.5336 umol/L
[2024-10-02 14:48] LABS: Alanine Aminotransferase 23 U/L (0-40); Albumin Level 4.1 g/dL (3.5-5.0); Alkaline Phosphatase 55 U/L (39-117); Anion Gap 11 (12-20); Aspartate Amino Transferase 26 U/L (5-37); Bilirubin Total 1.2 mg/dL (0.0-1.0); Blood Urea Nitrogen 20 mg/dL (9-16); Calcium 9.6 mg/dL (8.4-10.2); Carbon Dioxide 25 mmol/L (22-29); Chloride 109 mmol/L (96-108); Cholesterol 132 mg/dL (<200); Estimated Glomerular Filt Rate > 60; Glucose Random 88 mg/dL (60-115); HDL Cholesterol 42 mg/dL (>40); Iron 87 mcg/dL (45-160); LDL Cholesterol Calculated 73 mg/dL (<100); Percent Iron Saturation 40 % (15-50); Sodium 141 mmol/L (135-145); Total Iron Binding Capacity 215 mcg/dL (228-428); Total Protein 6.6 g/dL (6.5-8.0); Triglycerides 88 mg/dL (<150); Unsaturated Iron Binding 128 ug/dL
[2024-10-02 15:02] LABS: Microalbum/Creatinine Ratio Ur 10.8 ug/mg cr (<30)
[2024-10-02 15:04] LABS: HIV AB/AG Nonreactive (Nonreactive); HIV Num 1 0.06 S/CO (0.00-0.99); Syphilis Screen Nonreactive (Nonreactive)
[2024-10-02 15:06] LABS: Folate 9.9 ng/mL (> or = 4.0); Vitamin B12 310 pg/mL (200-900)
[2024-10-02 15:09] LABS: Ferritin 737 ng/mL (20-250); TSH reflex Free T4 0.86 uIU/mL (0.32-4.0); Vitamin D 25-OH Total 25.5 ng/mL (>30)
== END 2024-10-02 12:00 | disposition home or self-care (01) ==
LOC: HO.WFDLDS 11:59
PROVIDERS: Visit Provider Nurse Practitioner Family
DX: Z76.89 Persons encountering health services in other specified circumstances (principal); F03.A0 Unspecified dementia, mild, without behavioral disturbance, psychotic disturbance, mood disturbance, and anxiety; G47.33 Obstructive sleep apnea (adult) (pediatric); F90.0 Attention-deficit hyperactivity disorder, predominantly inattentive type; H90.3 Sensorineural hearing loss, bilateral; R79.89 Other specified abnormal findings of blood chemistry; N40.0 Benign prostatic hyperplasia without lower urinary tract symptoms; I10 Essential (primary) hypertension
CPT/HCPCS: 36415; 80053; 80061; 81003; 82043; 82306; 82570; 82607; 82728; 82746; 83036; 83540; 84443; 85027; 86780; 87389; 96127; 99202

== ENCOUNTER 2024-10-15 15:31 | Outpatient (REF) | payer MEDICARE, SELFPAY ==
[2024-10-15 16:27] LABS: Lactate Dehydrogenase 169 U/L (118-273)
[2024-10-15 16:50] LABS: Prostate Specific Antigen 5.42 ng/mL (<0.05-4.0)
[2024-10-15 17:06] LABS: Erythrocyte Sedimentation Rate 2 MM/HR (0-15)
[2024-10-16 06:14] LABS: CRP High Sensitivity <0.2 mg/L
== END 2024-10-15 15:32 | disposition home or self-care (01) ==
LOC: HO.LAB 15:31
PROVIDERS: PCP Nurse Practitioner Family; Visit Provider Nurse Practitioner Family
DX: R79.89 Other specified abnormal findings of blood chemistry (principal); N40.0 Benign prostatic hyperplasia without lower urinary tract symptoms; Z12.5 Encounter for screening for malignant neoplasm of prostate
CPT/HCPCS: 36415; 83615; 84153; 85652; 86141

== ENCOUNTER 2024-10-24 13:45 | Outpatient (AMB) | payer MEDICARE, SELFPAY ==
--- NOTE | 2024-10-24 13:46 | A.OFFPC_ITS ---
Vital Signs 10/24/24 13:49 Height 5 ft 4.5 in Weight 159 lb BMI 26.9 BP 118/68 Blood Pressure Location Rt brachial Position Sitting Respiration 12 Pulse 72 Pulse Source Pulse Oximeter Temp 97.1 F Temp Source Oral Pulse Oximetry (%) 97 Oxygen Delivery Method Room Air Intake Visit Reasons: review labs Intake Note: Follow up to review labs Contract Technician Required: No Allergies No Known Allergies Allergy (Mild, Verified 10/24/24 13:46) NOT APPLICABLE Medication List - Last Reconciled 10/24/24 by Salud Jeter, [employer] SALESMAN- losartan 100 mg PO DAILY methylphenidate HCl mg PO metoprolol succinate ER 100 mg PO DAILY metoprolol succinate ER 50 mg PO DAILY triamcinolone acetonide 0.1% 1 appl topical BID-TID Tobacco use date assessed: 10/02/24 Dental Screening Dental Screen Date: 10/02/24 HPI HPI Comments History of Present Illness Details Luke 78 y/o M with ADHD, Dementia , GERD, rhi norrhea, OA, BPH, epididymitis/varicocele/hydrocele/scrotal hernia, HTN, Anemia, CAD (Carotid US mild atherosclerotic plaque 2022, CT pelvis 10/2023 calcific atherosclerotic changes are present in the aorta and iliofemoral vessels.) Asthma/COPD, NILDA s/p repair of detached retinaL 2009, bilat cataracts, L inguinal hernia SurgHx: FHx: 3 children 2 boys 1 gir; Brother age 82 with prostate ca 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 Colon: Vaccines AAA screen EKG: [place] [facility] Care: Uro Pulm History of Present Illness - The patient is a 78-year-old male pres enting to review lab results. - Abnormal CBC with elevated RBC, low H& H, high RDW. - Low iron binding capacity and elevated ferritin. - Elevated total bilirubin. - Elevated PSA with a family history of prostate cancer. - Memory loss and cognitive concerns pro mpted initial lab tests. - Previous CBC showed abnormalities done by Dr Lee. Abnormal Diff. - Previously diagnosed sleep apnea witho ut treatment. Initialy declined to have sleep study done. [facility] about risks of untreated NILDA. Willing to have done but requests in lab, given dementia. - son is a PA. Family wants him to have access to Luke's patient portal. Review of Systems - Constitutional: Reports abnormal lab f indings; Denies acute distress. - Neurological: Reports memory loss. - Genitourinary: Reports an elevated pro state-specific antigen level; Denies urinary symptoms. - Respiratory: Denies new respiratory sy mptoms. - Hematologic/Lymphatic: Reports previou sly abnormal complete blood counts. Physical Exam General: Well developed, well nourished, in no acute distress. Head: Normocephalic, atraumatic. Eyes: Pupils are equal, round and reactive to light and accommodation. Conjunctivae are clear. Vision grossly normal. Lungs: Clear to auscultation bilaterally. No rales, rhonchi or wheeze noted. Good air flow in all [place]. Heart: Regular rate and rhythm. No murmurs, click, rubs or gallops are noted. Psych: Mood and affect appropriate. Repeats self. Everything you just said to me went out the window , defers to Suly to take notes. Requires redirection, can perseverate on things and easily gets lost in conversation. Results 10/02/24 abnormal cbc elevated rbc, low h/ h, high RDW, low Iron binding capacity, , elevated ferritin, eleveted total bili, vit d low CRP LDH SED RATE normal, PSA elevated Discussion Notes I discussed the abnormal lab results with the patient, emphasizing the elevated PSA and the family history of prostate cancer, necessitating follow-up with a urology specialist. I recommended a hematology consultation due to the persistent abnormalities in the CBC confirmed by a recent repeat test. Further, based on the previous diagnosis of sleep apnea, I suggested a repeat sleep study , emphasizing the importance of addressing potential risks associated with untreated sleep apnea, such as cardiac and neurological complications. We reviewed the potential referral processes, including local specialists at the [facility], while supporting patient preference for alternative locations if desired. I advised updating proxy access for medical records with his son's involvement, to facilitate a seamless exchange of relevant medical information. No immediate treatment changes were discussed pending further specialist evaluations. Assessment and Plan 1. Abnormal CBC - Refer to hollow ware maker for evaluation. 2. Elevated PSA - Urology consult recommended. - Discuss elevated PSA and family histor y. 3.. Obstructive Sleep Apnea - noted on p revious sleep study - Recommend in-lab sleep study. - Discuss sleep apnea risks. Patient Instructions - Schedule appointments with a urologist and hollow ware maker. - Prepare for a sleep study. Follow appo intment instructions provided. - Contact son for help with accessing me dical records if needed. - Monitor any new or worsening symptoms and report to a healthcare provider. - Follow up with specialists as recommen ded. - RTO in Jan for fu on consults and slee p study, sooner PRN Consent Patient was informed and verbally consented to the use of an ambient scribe for clinic note documentation during this visit. Total time spent caring for the patient today was 45 minutes. This includes time spent before the visit reviewing the chart, time spent during the visit, and time spent after the visit on documentation, reviewing laboratory results, diagnostic imaging, medications, performing a medically necessary evaluation, counseling on diagnoses, care coordination, ordering appropriate tests, ordering appropriate medications, review of tests performed by other providers, reporting test results with the patient, communication with other healthcare providers. [facility] Medical History (Updated 10/24/24 @ 15:05 by Salud Jeter [facility]) No pertinent family history Sinusitis Surgical History (Updated 10/02/24 @ 12:10 by Joyce Vitale MA) No pertinent past surgical history Social History (Updated 10/02/24 @ 11:13 by Joyce Vitale MA) Household Members: Spouse Both parents involved: No Caregiver staying overnight: No Housing: Apartment Are you a primary daycare provider to a significant other at home: No Do you presently have visiting nurse or other home services: No 75 years or older and lives alone: No Alcohol intake: never Patient Tobacco Use Status: Never used Tobacco e-Cigarette/Vaping Use: Never Used Second Hand Smoke Exposure: No service: No Current occupational status: retired Cognitive needs: Yes Hearing needs: No Vision needs: Yes (wear glasses) Questionnaire Thrive Questionnaire Date Thrive assessed: 10/02/24 I am a: Patient What is your living situation today?: I have a steady place to live Within the past 12 months, did the food you bought not last and you didn't have the money to get more?: Often true Within the past 12 months, did you worry whether your food would run out before you got money to buy more?: I choose not to answer this question Do you have trouble paying for medicines?: No Do you have trouble getting transportation to medical appointments?: No Do you have trouble paying your heating and electricity bill?: No Do you have trouble taking care of your child, family member or friend?: No Do you have trouble with day-to-day activities such as bathing, preparing meals, shopping, managing finances, etc.?: No Are you currently unemployed and looking for a job?: No Are you interested in more education?: No Please select the resources that you would like help with: None Currently or been in a relationship where the following occur: No concerns reported THRIVE Score: 1 GILES-7 AMB Questionnaire GILES-7 Date GILES - 7 assessed: 10/02/24 Source: Developed by Drs. Zen Cortez, Sheila Morales, Joel Song and colleagues, with an educational oscar from [employer]. Physical exam (Primary Care) Vital Signs: Last Vital Signs Temp 97.1 F 10/24/24 13:49 Pulse 72 10/24/24 13:49 Resp 12 10/24/24 13:49 BP 118/68 10/24/24 13:49 Pulse Ox 97 10/24/24 13:49 Oxygen Delivery Method Room Air 10/24/24 13:49 BMI result Body Mass Index 26.9 Tobacco/Smoking Status: Tobacco use Status Tobacco use date assessed 10/02/24 10/24/24 13:51 Patient Tobacco Use Status Never used Tobacco 10/24/24 13:51 e-Cigarette/Vaping Use Never Used 10/24/24 13:51 Thrive Assessment: Date of Thrive Assessment Date Thrive assessed 10/02/24 10/24/24 13:51 Currently or been in a relationship where the following occur: No concerns reported Coding Level of Care Code Est Pt Level 5 (65105) Complex EM visit Add On G2211 Diagnoses Encounter to discuss test results Z71.2 Benign prostatic hyperplasia without lower urinary tract symptoms N40.0 Lower urinary tract symptom presence: symptoms absent Elevated PSA R97.20 Family hx of prostate cancer Z80.42 Abnormal CBC R79.89 NILDA (obstructive sleep apnea) G47.33 Assessment & Plan Assessment & Plan (1) Encounter to discuss test results: Code(s): Z71.2 - Person consulting for explanation of examination or test findings (2) BPH (benign prostatic hyperplasia): Code(s): N40.0 - Benign prostatic hyperplasia without lower urinary tract symptoms Category: Medical Qualifiers: Lower urinary tract symptom presence: symptoms absent Qualified Code(s): N40.0 - Benign prostatic hyperplasia without lower urinary tract symptoms (3) Elevated PSA: Code(s): R97.20 - Elevated prostate specific antigen [PSA] Category: Medical (4) Family hx of prostate cancer: Comment: brother age 82 Code(s): Z80.42 - Family history of malignant neoplasm of prostate Category: Medical (5) Abnormal CBC: Code(s): R79.89 - Other specified abnormal findings of blood chemistry Category: Medical (6) NIDLA (obstructive sleep apnea): Code(s): G47.33 - Obstructive sleep apnea (adult) (pediatric) Category: Medical Plan . Orders: Orders RT PSG in-lab sleep study Today F03.A0 - Unspecified dementia, mild, without behavioral disturbance, psychotic disturbance, mood disturbance, and anxiety, G47.33 - Obstructive sleep apnea (adult) (pediatric) Referrals Hematology & Oncology Referral R79.89 - Other specified abnormal findings of blood chemistry Urology Referral N40.0 - Benign prostatic hyperplasia without lower urinary tract symptoms, R97.20 - Elevated prostate specific antigen [PSA], Z80.42 - Family history of malignant neoplasm of prostate Patient Instructions: Patient Instructions - Schedule appointments with a urologist and hollow ware maker. - Prepare for a sleep study. Follow appointment instructions provided. - Contact son for help with accessing medical records if needed. - Monitor any new or worsening symptoms and report to a healthcare provider. - Follow up with specialists as recommended. - Return to see me in January to follow up, sooner as needed Patient Portal: ONE PATIENT. ONE RECORD. BETTER CARE. [facility] has a fully integrated, cutting- edge mobile electronic health information system that has revolutionized the way we care for our patients and manage our organization. This system improves communication and coordination enabling us to provide safe, higher-quality care, and an overall positive experience for staff and patients. Our first priority, as always, is to deliver the highest quality care possible. The system is running in the background supporting that priority. This portal is for all [facility] services and practices. If you are experiencing any technical difficulties with enrolling or logging into the Patient Portal please complete the [facility] Patient Portal Technical Support Form. [facility] now offers a new secure on-line interactive tool for patients to review their health information ? Patient Portal. This interactive web portal will enable patients and their families to take an active role in their care by providing easy, secure access to their health information via the internet. The Patient Portal provides patients with instant access to their health information, including laboratory results, medications, allergies, demographic information, visit history, and more. In addition to managing their own care, parents and health care proxies with authorized consent will appreciate the ability to access the records of those individuals for whom they provide care. Please note: if you wish to gain access (Proxy) to another patient?s portal, you will be required to come to the Medical Records Department in person at [facility]. Both the patient giving proxy access and the proxy will need to provide photo identification and complete the appropriate authorization. The Patient Portal also allows track their appointments online. The [facility] Patient Portal also saves patients time by allowing them to submit updates to their demographic and contact information prior to their visits. Portal email notifications will also alert patients to any new activity on their portal, such as test results and new appointments. In order to initially enroll in the [facility] Patient Portal, you will need to enter some required information including the following: ? your [facility] Medical Record number ? your personal home email address ? name ? date of Please note: In order to enroll in the [facility] Patient Portal, we need to have your email address on file in your electronic medical record. The email address needs to be specific for one person (yourself) in order for your Portal enrollment to be successful. You can update your email address in person with our Registration staff when you are registering for a hospital visit. Othe rwise, you will need to come to the Health Information Management (Medical Records) Department at [facility]. We are open from Sunday ? Sunday from 7:30 a.m. ? 4:30 p.m. You will be required to present a photo id. Once you have successfully enrolled in the Patient Portal, you will receive a one-time user id and password for the Portal, sent to your email address. This will allow you to log into the Patient Portal within 99 hrs and reset your own logon id and password, and define personal security questions. Once your permanent login and password have been set, you can log into the [facility] Patient Portal at any time via the blue button above or from the Portal Logon button on any page of the [facility] website. [facility] and [facility] encourage all of our patients to enroll in Patient Portal as it presents a valuable opportunity for patients and their families to actively participate in their care and stay healthy
[2024-10-24 13:49] VITALS: BP 118/68; PULSE 72; RESP 12; TEMP 36.2; O2SAT 97; BMI 26.9
== END 2024-10-24 14:42 | disposition home or self-care (01) ==
LOC: HO.HMCFM 13:45
PROVIDERS: PCP Nurse Practitioner Family; Visit Provider Nurse Practitioner Family
DX: N40.0 Benign prostatic hyperplasia without lower urinary tract symptoms (principal); Z71.2 Person consulting for explanation of examination or test findings; R97.20 Elevated prostate specific antigen [PSA]; Z80.42 Family history of malignant neoplasm of prostate; R79.89 Other specified abnormal findings of blood chemistry; G47.33 Obstructive sleep apnea (adult) (pediatric)

== ENCOUNTER → 2024-10-24 13:45 | Outpatient (BNVA) | payer MEDICARE, SELFPAY | PROVIDERS: PCP Nurse Practitioner Family; Visit Provider Nurse Practitioner Family | DX: Z71.2 Person consulting for explanation of examination or test findings (principal); N40.0 Benign prostatic hyperplasia without lower urinary tract symptoms; R97.20 Elevated prostate specific antigen [PSA]; R79.89 Other specified abnormal findings of blood chemistry; G47.33 Obstructive sleep apnea (adult) (pediatric); I10 Essential (primary) hypertension; F03.90 Unspecified dementia, unspecified severity, without behavioral disturbance, psychotic disturbance, mood disturbance, and anxiety; Z80.42 Family history of malignant neoplasm of prostate | CPT/HCPCS: 99212 ==

== ENCOUNTER 2024-12-03 10:36 | Outpatient (REF) | payer MEDICARE, SELFPAY | END 2024-12-03 10:37 | disposition home or self-care (01) | LOC: HO.LNP 10:36 | PROVIDERS: PCP Internal Medicine; Visit Provider Nurse Practitioner Family | DX: I86.1 Scrotal varices (principal); N40.0 Benign prostatic hyperplasia without lower urinary tract symptoms; R97.20 Elevated prostate specific antigen [PSA]; R31.29 Other microscopic hematuria; Z80.42 Family history of malignant neoplasm of prostate | CPT/HCPCS: 81003; 88112; 99212 ==

== ENCOUNTER 2024-12-03 10:36 | Outpatient (AMB) | payer MEDICARE, SELFPAY ==
--- NOTE | 2024-12-03 10:36 | A.OFFVIS_ITS ---
Intake Visit Reasons: 1y/PSA(set) Intake Note: Patient presents today for follow up on: Elevated PSA PSA: 5.42 Urology Medication:none Antibiotic Allergy:none Blood Thinner:none Advertising Coordinator Required: No Accompanied by: Unknown Allergies No Known Allergies Allergy (Mild, Verified 12/03/24 11:18) NOT APPLICABLE Medication List - Last Reconciled 12/03/24 by SONALI Carrion losartan 100 mg PO DAILY methylphenidate HCl mg PO metoprolol succinate ER 100 mg PO DAILY metoprolol succinate ER 50 mg PO DAILY triamcinolone acetonide 0.1% 1 appl topical BID-TID HPI Comments Details: Sukhdeep Butler is a 79-year-old male patient of Dr. Jeter who was accompanied by his ex- at today's office visit. He has a past medical history of ADHD, Dementia , GERD, rhinorrhea, OA, BPH, epi didymitis/varicocele/hydrocele/scrotal hernia, HTN, Anemia, CAD (Carotid US mild atherosclerotic plaque 2022, CT pelvis 10/2023 calcific atherosclerotic changes are present in the aorta and iliofemoral vessels.) Asthma/COPD, and NILDA. He presents to the office today for follow-up of his varicoceles and epididymitis. In discussion with the patient today who was pleasantly confused he reports to be doing and feeling well. He denies having had any bothersome urinary issues or concerns. Recent PSA results that were obtained for surveillance monitoring were reviewed. PSA 10/26 5.4. We did discussed potential causes of elevated PSA as well as further interventions and risks and benefits of these interventions. Call to patient's son Dano was a PA per request of patient as he suffers from dementia and does not feel he will be able to recall information that his provided throughout today's visit. I discussed with the patient's son potential causes of elevated PSA as well as further treatment options and risks and benefits of these treatment options. MONTY was performed right side of the prostate was noted to be firm otherwise no suspicious nodules palpated. We discussed redraw of PSA with no sex the night before, no caffeine morning of, and no heavy lifting 1-2 days prior. We also discussed obtaining retroperitoneal ultrasound for further assessment evaluation. Patient with previous CT imaging noting moderate BPH with prostate measuring approximately [address] of the pelvis 10/25. He denies any bothersome urinary issues. He denies urinary urgency, urinary frequency, incontinence, nocturia, hematuria, dysuria, foul smelling urine, changes to urinary stream, flank pain, fever, and or chills. He is happy with is current voiding parameters. In office urinalysis results reviewed with the patient today. He denies having had any recurrent episodes of left-sided testicular discomfort he had been experiencing. When asked he does report a potential history of prostate cancer as he believes his brother has prostate cancer however given patient's history of dementia he is unsure if his brother has prostate issues verses prostate cancer. However in review of patient's chart PCP notes states family history of prostate cancer. He otherwise offers no other issues or concerns at this time. [facility] Medical History Sinusitis No pertinent family history Surgical History No pertinent past surgical history Social History Household Members: Spouse Both parents involved: No Caregiver staying overnight: No Housing: Apartment Are you a primary customer care associate to a significant other at home: No Do you presently have visiting nurse or other home services: No 75 years or older and lives alone: No Alcohol intake: never Patient Tobacco Use Status: Never used Tobacco e-Cigarette/Vaping Use: Never Used Second Hand Smoke Exposure: No service: No Current occupational status: retired Cognitive needs: Yes Hearing needs: No Vision needs: Yes (wear glasses) Review of Systems Const Unobtainable due to mental condition and Unobtainable due to mental status Physical Exam Const General: cooperative, healthy appearing, comfortable, no acute distress, well developed, alert and awake Orientation/consciousness: oriented to person HEENT Head: Yes normal to inspection, Yes normocephalic and Yes atraumatic Ears: hearing grossly normal bilaterally Eyes General: appearance normal, both eyes and all related structures Neck Neck: Yes normal visual inspection and Yes trachea midline Chest Chest palpation & inspection: normal inspection of the chest Resp Effort & Inspection: normal respiratory effort and able to speak in complete sentences Cardio Rate: regular rate GI Inspection: Yes normal to inspection General: Yes no CVA tenderness Back/Spine/Pelvis Back: no CVA tenderness Skin General skin exam: no rashes or lesions noted Neuro General: oriented to person Extrem General: Yes normal to inspection Psych Appearance: grossly normal and well kempt Mental Status: mental status grossly normal Speech and movement: Normal speech and movement present and Clear speech present Affect: normal affect Attitude: cooperative Thought process: Normal thought process present Thought content: Normal thought content present Insight: Limited insight present (Psych) and Poor insight present (Psych) Judgement: Limited judgement present (Psych) and Poor judgement present (Psych) Results AMB Urinalysis, Automated UA Leukoctes 0 Layne/uL Last Edit by Liseth Green [facility] on 12/03/24 10:57 UA Nitrite [facility] on 12/03/24 10:57 UA Urobilinogen 0.2 mg/dL Last Edit [facility] on 12/03/24 10:5 7 UA Protein 15 mg/dL Last Edit [facility] on 12/03/24 10:57 UA pH 6.0 Last Edit by [facility] on 12/03/24 10:57 UA Blood 10 Bari/uL Last Edit by [facility] Eunice [facility] on 12/03/24 10:57 UA Specific [place] 1.020 Last Edit by Liseth Green [facility] on 12/03/24 10: 57 UA Ketone Last Edit [facility] on 12/03/24 10:57 UA Bilirubin 0 mg/dL Last Edit [facility] on 12/03/24 10:57 UA Glucose 0 mg/dL Last Edit by [facility] Eunice [facility] on 12/03/24 10:57 Results Reviewed Results Reviewed: Laboratory Last Values Urine pH (Auto) 6.0 12/03/24 10:56 Specific [place] (Auto) 1.020 12/03/24 10:56 Urine Protein (Auto) 15 mg/dL 12/03/24 10:56 Glucose (UA)(Auto) 0 mg/dL 12/03/24 10:56 Urine Blood (Auto) 10 Bari/uL 12/03/24 10:56 Urine Bilirubin (Auto) 0 mg/dL 12/03/24 10:56 Urine Urobilinogen (Auto) 0.2 mg/dL 12/03/24 10:56 Leukocyte Esterase (Auto) 0 Layne/uL 12/03/24 10:56 Assessment & Plan Assessment & Plan (1) Elevated PSA: Code(s): R97.20 - Elevated prostate specific antigen [PSA] Category: Medical (2) Varicocele: Code(s): I86.1 - Scrotal varices Category: Medical (3) Enlarged prostate: Code(s): N40.0 - Benign prostatic hyperplasia without lower urinary tract symptoms Category: Medical (4) Family hx of prostate cancer: Comment: brother age 82 Code(s): Z80.42 - Family history of malignant neoplasm of prostate Category: Medical Plan In office urinalysis results reviewed with the patient today; will send for urine cytology. Recent PSA results reviewed with the patient today; as noted above. We did discussed potential causes of elevated PSA as well as further treatment options and risks and benefits of these treatment options. He currently denies any bothersome urinary issues or concerns. He reports be happy with current voiding parameters. Will obtain redraw of PSA for further assessment evaluation. Will obtain retroperitoneal ultrasound for further assessment evaluation. Call to the patient's son Dano Sarmiento [phone] discussed plan of care. Follow-up in 1-2 months with imaging and labs to be completed prior; or sooner with any issues, concerns, and or questions. Orders: Orders AMB Urinalysis Automated Today Z13.9 - Encounter for screening, unspecified Urine Cytology Today R31.29 - Other microscopic hematuria PSA,Total (Free>4and<10) Today R97.20 - Elevated prostate specific antigen [PSA] Patient Instructions: The patient had an opportunity to ask questions regarding the treatment plan. All questions were answered. Physical exam, labs, and imaging were discussed and reviewed in detail. As well as risks, benefits, and discussion of treatment choices. No major barriers to understanding were identified. The patient expressed understanding and agreement with the above treatment plan. The patient was made aware they should contact our office by phone for worsening of their current condition, the appearance of new symptoms, or with any questions or concerns. Compliance is encouraged with any medications and follow up testing that is ordered. It is a privilege to be allowed the opportunity to participate in? your urological care.? Again, if you have any questions or concerns If you have any questions or concerns please do not hesitate to contact me. The office is [phone]. This note is constructed using voice recognition software. While every effort has been made to ensure accuracy boilers inspector errors may have been included. Yours sincerely, SONALI Carrion Coding Level of Care Code Est Pt Level 4 (43203) Complex EM visit Add On G2211 Diagnoses Elevated PSA R97.20 Varicocele I86.1 Enlarged prostate N40.0 Family hx of prostate cancer Z80.42 Time Spent (min) 45
== END 2024-12-03 11:27 | disposition home or self-care (01) ==
LOC: HO.HUSH 10:36
PROVIDERS: PCP Internal Medicine; Visit Provider Nurse Practitioner Family
DX: R97.20 Elevated prostate specific antigen [PSA] (principal); I86.1 Scrotal varices; N40.0 Benign prostatic hyperplasia without lower urinary tract symptoms; Z80.42 Family history of malignant neoplasm of prostate; Z13.9 Encounter for screening, unspecified
CPT/HCPCS: 99214; G2211

== ENCOUNTER → 2024-12-11 10:38 | Outpatient (BNV) | payer MEDICARE, SELFPAY | PROVIDERS: PCP Nurse Practitioner Family; Visit Provider Internal Medicine Medical Oncology | DX: D64.9 Anemia, unspecified (principal); R79.89 Other specified abnormal findings of blood chemistry | CPT/HCPCS: 99204 ==

== ENCOUNTER → 2024-12-11 12:11 | Outpatient (BNV) | payer MEDICARE, SELFPAY | PROVIDERS: PCP Nurse Practitioner Family; Visit Provider Radiology Diagnostic Radiology | DX: M19.012 Primary osteoarthritis, left shoulder (principal) | CPT/HCPCS: 73030 ==

== ENCOUNTER 2024-12-15 09:12 | Outpatient (AMB) | payer MEDICARE, SELFPAY ==
--- NOTE | 2024-12-15 09:17 | A.OFFPC_ITS ---
Vital Signs 12/15/24 09:24 Height 5 ft 6 in Weight 154 lb 4 oz BMI 24.9 BP 168/84 H Blood Pressure Location Rt brachial Position Sitting Respiration 13 Pulse 69 Pulse Source Pulse Oximeter Temp 97.1 F Temp Source Oral Pulse Oximetry (%) 99 Oxygen Delivery Method Room Air Intake Visit Reasons: left shoulder pain Intake Note: Patient c/o left shoulder px x3 weeks and also patient had a xray of the shoulder done on 12/11/24. Straight Edger Required: No Allergies No Known Allergies Allergy (Mild, Verified 12/15/24 09:42) NOT APPLICABLE Medication List - Last Reconciled 12/15/24 by Salud Jeter, [employer]- albuterol sulfate 90 mcg/actuation inhalation losartan 100 mg PO DAILY Tobacco use date assessed: 12/15/24 Fall risk assessment: No Falls in past year Last assessed Fall Risk: 12/15/24 Dental Screening Dental Screen Date: 12/15/24 Did you have a dental visit in the last 12 months?: Yes Did you have a dental problem in the last 6 months where you did not have access to dental care?: No Was dental information given to patient?: Patient has dentist HPI HPI Comments History of Present Illness Details Luke 79 y/o M with ADHD, Dementia , GERD, rhi norrhea, OA, BPH, epididymitis/varicocele/hydrocele/scrotal hernia, HTN, Anemia, CAD (Carotid US mild atherosclerotic plaque 2022, CT pelvis 10/2023 calcific atherosclerotic changes are present in the aorta and iliofemoral vessels.) Asthma/COPD, NILDA s/p repair of detached retinaL 2009, bilat cataracts, L inguinal hernia SurgHx: FHx: 3 children 2 boys 1 gir; Brother age 82 with prostate ca 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 Colon: Vaccines AAA screen EKG: [place] of Care: Uro Pulm History of Present Illness - The patient is an 79-year-old male pre senting with left shoulder pain. - No preceding trauma; acute pain upon s houlder elevation. - X-ray: subchondral cyst on the left hu meral head, compatible with no acute disruption. - Pain progressive over time; no use of analgesics or topical rubs. - Denies left shoulder weakness HTN BP elevated, not taking losartan, ran out of refills; did not know that. She does not live w/ him. he lives alone. Was on methyphenidate; stopped taking. I do not think he needs this and ok to stop. *other notes thinks i ordered the xray and wants to know about the Uro results; i asked who went to the appt w/ him she said she did but did not see or talk to any providers. this does not seem to make sense. I was not able to review the chart in detail as they were late for their appt. ?? cognitive impairment in the , too?? son, dano, who is a PA is involved. he will be called after this appt w/ an update. Pt and made aware. Review of Systems - Musculoskeletal: Reports left shoulder pain with movement, especially upon elevation. - Neurological: Denies weakness of the l eft shoulder. - General: Reports no trauma or injury t o the shoulder. Physical Exam General: Well developed, well nourished, in no acute distress. Accompanied by Head: Normocephalic, atraumatic. Musculoskeletal: L arm neurovasc intact; Pain with palp over scapula/posterior shoulder, LROm d/t pain. States pain radiates from deltoid down towards elbow. There is no swelling, redness, or effusions. Pulses: Peripheral pulses are equal and palpable bilaterally. Cards - BP elevated. Results See below - Imaging: X-ray of the left shoulder in dicates subchondral cyst formation at the humeral head, greater tuberosity, and inferior glenoid of the scapula. - Imaging: X-ray of the left shoulder indicates subchondral cyst formation at the humeral head, greater tuberosity, and inferior glenoid of the scapula. Discussion Notes I discussed with the patient that the left shoulder pain is likely due to the subchondral cyst causing mechanical limitation. I outlined the management option s available, emphasizing the use of physical therapy as a primary intervention strategy. I advised the patient that regular attendance at therapy sessions is crucial for improvement. For cost and convenience, options available locally for therapy were suggested, including [facility]. The use of topical creams on the affected area was recommended as an adjunct treatment. I emphasized the importance of consistently taking prescribed antihypertensive medication, losartan, to manage essential hypertension effectively and discussed how failure to adhere could have adverse effects. The continuation of urology follow-up was considered, with plans to address any findings at a subsequent appointment. A new prescription for losartan and a topical application for shoulder pain was sent to [facility] for the patient?s convenience. A follow-up appointment was confirmed for next month to reassess and further evaluate his condition. Assessment and Plan 1. Left shoulder subchondral cyst - Recommend physical therapy; local faci lity referrals. - Prescribed symptomatic topical cream. 2. Hypertension (Essential Hypertension) - Reinforced losartan intake; refill pre scription sent to pharmacy, asked to provide blister packs. 3. Dementia -- son Dano to be called w/ update.I ? if also has cognitive impairment as she is not able to recall much detail. Patient Instructions - Attend physical therapy sessions as sc heduled for shoulder pain. - Apply the prescribed topical cream to the shoulder area for relief. - Continue taking your blood pressure me dication (losartan) daily without missing doses. - Monitor your shoulder's range of motio n and report any significant changes in pain. - Utilize both ice and heat packs as nee ded to manage discomfort. - Contact the clinic if pain increases o r other symptoms arise. RTO as scheduled in January, sooner PRN Consent Patient was informed and verbally consented to the use of an ambient scribe for clinic note documentation during this visit. Total time spent caring for the patient today was 45 minutes. This includes time spent before the visit reviewing the chart, time spent during the visit, and time spent after the visit on documentation, reviewing laboratory results, diagnostic imaging, medications, performing a medically necessary evaluation, counseling on diagnoses, care coordination, ordering appropriate tests, ordering appropriate medications, review of tests performed by other providers, reporting test results with the patient, communication with other healthcare providers. [facility] Medical History Sinusitis No pertinent family history Surgical History No pertinent past surgical history Social History (Updated 12/11/24 @ 11:17 by Luz Serra) Household Members: None Both parents involved: No Caregiver staying overnight: No Housing: Apartment Are you a primary healthcare management to a significant other at home: No Do you presently have visiting nurse or other home services: No 75 years or older and lives alone: No Alcohol intake: never Patient Tobacco Use Status: Former Tobacco user e-Cigarette/Vaping Use: Never Used Second Hand Smoke Exposure: No service: Yes Current occupational status: retired Cognitive needs: Yes Hearing needs: No Vision needs: Yes (wear glasses) Questionnaire Thrive Questionnaire Date Thrive assessed: 10/02/24 I am a: Patient What is your living situation today?: I have a steady place to live Within the past 12 months, did the food you bought not last and you didn't have the money to get more?: Often true Within the past 12 months, did you worry whether your food would run out before you got money to buy more?: I choose not to answer this question Do you have trouble paying for medicines?: No Do you have trouble getting transportation to medical appointments?: No Do you have trouble paying your heating and electricity bill?: No Do you have trouble taking care of your child, family member or friend?: No Do you have trouble with day-to-day activities such as bathing, preparing meals, shopping, managing finances, etc.?: No Are you currently unemployed and looking for a job?: No Are you interested in more education?: No Please select the resources that you would like help with: None Currently or been in a relationship where the following occur: No concerns reported THRIVE Score: 1 AUDIT C Alcohol Use Questionnaire (AUDIT-C) 2. How many drinks containing alcohol do you have on a typical day when you are drinking?: 1 or 2 3. How often do you have six or more drinks on one occasion?: Never Total Score: 0 GILES-7 AMB Questionnaire GILES-7 Date GILES - 7 assessed: 10/02/24 Source: Developed by Drs. Zen Cortez, Sheila Morales, Joel Song and colleagues, with an educational oscar from [employer]. Physical exam (Primary Care) Vital Signs: Last Vital Signs Temp 97.1 F 12/15/24 09:24 Pulse 69 12/15/24 09:24 Resp 13 12/15/24 09:24 BP 168/84 H 12/15/24 09:24 Pulse Ox 99 12/15/24 09:24 Oxygen Delivery Method Room Air 12/15/24 09:24 BMI result Body Mass Index 24.9 Tobacco/Smoking Status: Tobacco use Status Tobacco use date assessed 12/15/24 12/15/24 09:26 Patient Tobacco Use Status Former Tobacco user 12/15/24 09:17 e-Cigarette/Vaping Use Never Used 12/15/24 09:17 Thrive Assessment: Date of Thrive Assessment Date Thrive assessed 10/02/24 12/15/24 09:17 Currently or been in a relationship where the following occur: No concerns repor yakelin Results Reviewed Results Reviewed: [address] [place] [id number] XRay Report Signed Patient: Sukhdeep Sarmiento MR#: [id number] : 1945 Acct:[id number] age/Sex: 79 / M ADM Date: 12/11/24 Loc: HO.ONC Attending Dr: Romelia Lujan MD Ordering Physician: Romelia Lujan MD Date of Service: 12/11/24 Procedure(s): XR shoulder LT min 2V Accession Number(s): [id number] cc: Romelia Lujan MD; Salud Jeter [facility]~ EXAMINATION: XR SHOULDER, LEFT CLINICAL INFORMATION: Left shoulder pain, difficulty with movement COMPARISON: None available. TECHNIQUE: AP external rotation, Grashey, scapular Y, and axillary views of the left shoulder. FINDINGS: Subchondral cyst formation at the humeral head/greater tuberosity and inferior glenoid of the scapula. No acute cortical disruption or malalignment. No lytic or blastic lesions. Metallic plate not within the [id number] in the lower cervical spine. XR/XR shoulder LT min 2V IMPRESSION: Degenerative changes without acute fracture or dislocation. Electronically signed by: Thor Bravo MD 12/11/2024 12:41 PM EDT RP Coding Level of Care Code Est Pt Level 5 (97164) Complex EM visit Add On G2211 Diagnoses Chronic left shoulder pain M25.512; G89.29 Chronicity: chronic Primary hypertension I10 Hypertension type: primary hypertension Mild dementia without behavioral disturbance, psychotic disturbance, mood disturbance, or anxiety, unspecified dementia type F03.A0 Dementia type: unspecified type Dementia severity: mild Dementia behavioral or psychological symptom: without behavioral, psychotic, or mood disturbance or anxiety Assessment & Plan Assessment & Plan (1) Left shoulder pain: Code(s): M25.512 - Pain in left shoulder Category: Medical Qualifiers: Chronicity: chronic Qualified Code(s): M25.512 - Pain in left shoulder; G89.29 - Other chronic pain (2) HTN (hypertension): Code(s): I10 - Essential (primary) hypertension Category: Medical Qualifiers: Hypertension type: primary hypertension Qualified Code(s): I10 - Essential (primary) hypertension (3) Dementia: Code(s): F03.90 - Unspecified dementia, unspecified severity, without behavioral disturbance, psychotic disturbance, mood disturbance, and anxiety Category: Medical Qualifiers: Dementia type: unspecified type Dementia severity: mild Dementia behavioral or psychological symptom: without behavioral, psychotic, or mood disturbance or anxiety Qualified Code(s): F03.A0 - Unspecified dementia, mild, without behavioral disturbance, psychotic disturbance, mood disturbance, and anxiety Plan . Orders: Orders PT Evaluation and Treatment Today M25.512 - Pain in left shoulder Medications: New diclofenac sodium 1% apply to SHOULDER 2 grams topical QID 100 grams 0RF losartan 100 mg PO DAILY 90 tabs 2RF Patient Instructions: Patient Instructions - Attend physical therapy sessions as scheduled for shoulder pain. - Apply the prescribed topical cream to the shoulder area for relief. - Continue taking your blood pressure medication (losartan) daily without miss ing doses. - Monitor your shoulder's range of motion and report any significant changes in pain. - Utilize both ice and heat packs as needed to manage discomfort. - Contact the clinic if pain increases or other symptoms arise. - Return as scheduled 01/26 at 1030 am
[2024-12-15 09:24] VITALS: BP 168/84; PULSE 69; RESP 13; TEMP 36.2; O2SAT 99; BMI 24.9
== END 2024-12-15 10:00 | disposition home or self-care (01) ==
LOC: HO.HMCFM 09:12
PROVIDERS: PCP Nurse Practitioner Family; Visit Provider Nurse Practitioner Family
DX: M25.512 Pain in left shoulder (principal); G89.29 Other chronic pain; I10 Essential (primary) hypertension; F03.A0 Unspecified dementia, mild, without behavioral disturbance, psychotic disturbance, mood disturbance, and anxiety

== ENCOUNTER → 2024-12-15 09:12 | Outpatient (BNVA) | payer MEDICARE, SELFPAY | PROVIDERS: PCP Nurse Practitioner Family; Visit Provider Nurse Practitioner Family | DX: M25.512 Pain in left shoulder (principal); G89.29 Other chronic pain; I10 Essential (primary) hypertension; F03.A0 Unspecified dementia, mild, without behavioral disturbance, psychotic disturbance, mood disturbance, and anxiety | CPT/HCPCS: 99212 ==

== ENCOUNTER 2025-01-09 08:13 | Outpatient (AMB) | payer MEDICARE, SELFPAY ==
--- NOTE | 2025-01-09 12:32 | MHC.PC.OV ---
Intake Visit Reasons: Review meds for mood with pt. 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 Required: No Allergies No Known Allergies Allergy (Mild, Verified 01/13/25 07:15) NOT APPLICABLE Medication List - Last Reconciled 01/13/25 by Salud Jeter, [facility]- albuterol sulfate 90 mcg/actuation inhalation diclofenac sodium 1% 2 grams topical QID losartan 100 mg PO DAILY Tobacco use date assessed: 01/09/25 Fall risk assessment: No Falls in past year Last assessed Fall Risk: 01/09/25 Dental Screening Dental Screen Date: 12/15/24 Did you have a dental visit in the last 12 months?: Yes Did you have a dental problem in the last 6 months where you did not have access to dental care?: No Was dental information given to patient?: Patient has dentist HPI HPI Comments History of Present Illness Details Luke 79 y/o M with ADHD, Dementia , GERD, rhinorrhea, OA, BPH, epididymitis/varicocele/hydrocele/scrotal hernia, HTN, Anemia, CAD (Carotid US mild atherosclerotic plaque 2022, CT pelvis 10/2023 calcific atherosclerotic changes are present in the aorta and iliofemoral vessels.) Asthma/COPD, NILDA s/p repair of detached retinaL 2009, bilat cataracts, L inguinal hernia SurgHx: FHx: 3 children 2 boys 1 gir; Brother age 82 with prostate ca 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 Colon: Vaccines AAA screen EKG: [place] of Care: [facility] Telehealth visit today with sons Abdirahman and Dano to discuss plan of care Dementia with increase needs for ADLs, med mgmt. Has [place] 1 hour per day. Think he needs more help w/ basic ADLs but also w/ social interaction aggressive mood swings emotional more forgetful both short and group home memory worse Not taking meds Plan: Discussed options such as [facility]; referral placed in past but not followed through on Info provided to sons to contact them for add'l support [facility] - pay out of pocket info provided Offered and declined seroquel; Doesnt think there yet. Reviewed aricept and namenda. I do not recommend d/t side effects and he needs someone to give him meds. Could trial Exelon patch. Declined at this time Could consider Clonidine patch for BP control. Oversight on admin would be required. Lulu Matson and Abdirahman ([phone]) should be points of contact Both admit Mom has some cogntive concerns, too. Sign up for portal by proxy for better access RTO as scheduled, sooner PRN Telehealth Attestation I attest that this visit was conducted via telehealth and that the documentation accurately reflects the information provided by the patient during this visit. The patient has been explained that this is an interactive (audio/video) telehealth encounter and what that consists of. The patient understands and wishes to proceed. [employer] platform was used. Total time spent caring for the patient today was 60 minutes. This includes time spent before the visit reviewing the chart, time spent during the visit, and time spent after the visit on documentation, reviewing laboratory results, diagnostic imaging, medications, performing a medically necessary evaluation, counseling on diagnoses, care coordination, ordering appropriate tests, ordering appropriate medications, review of tests performed by other providers, reporting test results with the patient, communication with other healthcare providers. [facility] Medical History (Reviewed 12/03/24 @ 11:25 by JESSIE [facility]FORM[facility]LY [facility]) Sinusitis No pertinent family history Surgical History No pertinent past surgical history Social History (Updated 12/11/24 @ 11:17 by Luz Serra) Household Members: None Both parents involved: No Caregiver staying overnight: No Housing: Apartment Are you a primary care transition coordinator to a significant other at home: No Do you presently have visiting nurse or other home services: No 75 years or older and lives alone: No Alcohol intake: never Patient Tobacco Use Status: Former Tobacco user e-Cigarette/Vaping Use: Never Used Second Hand Smoke Exposure: No service: Yes Current occupational status: retired Cognitive needs: Yes Hearing needs: No Vision needs: Yes (wear glasses) Questionnaire Thrive Questionnaire Date Thrive assessed: 10/02/24 GILES-7 AMB Questionnaire GILES-7 Date GILES - 7 assessed: 10/02/24 Source: Developed by Drs. Zen Cortez, Sheila Morales, Joel Song and colleagues, with an educational oscar from [employer]. Physical exam (Primary Care) Tobacco/Smoking Status: Tobacco use Status Tobacco use date assessed 01/09/25 01/09/25 12:34 Patient Tobacco Use Status Former Tobacco user 01/09/25 12:34 e-Cigarette/Vaping Use Never Used 01/09/25 12:34 Thrive Assessment: Date of Thrive Assessment Date Thrive assessed 10/02/24 01/09/25 12:34 Telehealth Telehealth Telehealth Platform: [employer] Location of provider rendering services: practice address Location of patient: address on file Patient Identification confirmed using: Name, : Yes Telehealth method: voice only Patient verbally consented to treatment: Yes Patient verbally consented to billing insurance company: Yes Patient informed of any privacy concerns related to visit: Yes Minutes spent on Phone/Video with Pt.: 45 Coding Level of Care Code Tele Est Pt Level 5 (13057) Complex EM visit Add On G2211 Diagnoses Primary hypertension I10 Hypertension type: primary hypertension Mild dementia without behavioral disturbance, psychotic disturbance, mood disturbance, or anxiety, unspecified dementia type F03.A0 Dementia type: unspecified type Dementia severity: mild Dementia behavioral or psychological symptom: without behavioral, psychotic, or mood disturbance or anxiety Dependent relative needing care at home Z63.6 CPT Codes PROLONG OUTPT/OFFICE VIS - G2212 Assessment & Plan Assessment & Plan (1) HTN (hypertension): Code(s): I10 - Essential (primary) hypertension Category: Medical Qualifiers: Hypertension type: primary hypertension Qualified Code(s): I10 - Essential (primary) hypertension (2) Dementia: Code(s): F03.90 - Unspecified dementia, unspecified severity, without behavioral disturbance, psychotic disturbance, mood disturbance, and anxiety Category: Medical Qualifiers: Dementia type: unspecified type Dementia severity: mild Dementia behavioral or psychological symptom: without behavioral, psychotic, or mood disturbance or anxiety Qualified Code(s): F03.A0 - Unspecified dementia, mild, without behavioral disturbance, psychotic disturbance, mood disturbance, and anxiety (3) Dependent relative needing care at home: Code(s): Z63.6 - Dependent relative needing care at home Category: Medical Plan .
== END 2025-01-09 13:20 | disposition home or self-care (01) ==
LOC: HO.HMCFM 08:13
PROVIDERS: PCP Nurse Practitioner Family; Visit Provider Nurse Practitioner Family
DX: I10 Essential (primary) hypertension (principal); F03.A0 Unspecified dementia, mild, without behavioral disturbance, psychotic disturbance, mood disturbance, and anxiety; Z63.6 Dependent relative needing care at home

== ENCOUNTER 2025-01-26 10:32 | Outpatient (AMB) | payer MEDICARE, SELFPAY ==
--- NOTE | 2025-01-26 10:37 | A.OFFPC_ITS ---
Vital Signs 3 01/26/25 10:42 Height 5 ft 6 in Weight 155 lb 4 oz BMI 25.1 BP 142/78 H Blood Pressure Location Lt brachial Position Sitting Respiration 13 Pulse 72 Pulse Source Pulse Oximeter Temp 97.1 F Temp Source Oral Pulse Oximetry (%) 98 Oxygen Delivery Method Room Air Intake Visit Reasons: fu on consults and sleep study Intake Note: Routine Follow up. Patient is hard of hearing. 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- albuterol sulfate 90 mcg/actuation inhalation diclofenac sodium 1% 2 grams topical QID losartan 100 mg PO DAILY Tobacco use date assessed: 01/09/25 Dental Screening Dental Screen Date: 12/15/24 HPI HPI Comments 2 History of Present Illness0 Details Luke 79 y/o M with ADHD, Dementia , GERD, rhi norrhea, OA, BPH, epididymitis/varicocele/hydrocele/scrotal hernia, HTN, Anemia, CAD (Carotid US mild atherosclerotic plaque 2022, CT pelvis 10/2023 calcific atherosclerotic changes are present in the aorta and iliofemoral vessels.) Asthma/COPD, NILDA s/p repair of detached retinaL 2009, bilat cataracts, L inguinal hernia FHx: 3 children 2 boys 1 gir; Brother age 82 with prostate ca 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 The 1st concern is that of hearing. They report that the patient is hard of hearing. He does have hearing aids but does not wear them. He is sick with a URI that includes a runny nose that started a few days ago. He was exposed to sick contacts with similar symptoms. He denies any fever, chills, sore throat, cough. The next is that of follow up from the telehealth visit. Remain undecided about Exelon and clonidine patches. Reviewed as a group today. Discuss the Alzheimer's [employer] and referrals to other support services such as [facility], [place] and day programs such as the [employer] in [place]. Mutually agreed that he needs support in the home. His blood pressure is mildly elevated today. He is unable to manage taking medications on his own. The family does their best to provide support. Exam: Awake alert NAD PERRLA, EOMI TM intact mild clouding, EAC clear bilat Nares w/ clear drainage, no sinus tenderness w/ palp No PND RRR LS CTAB Alert, pleasant, cognitive impairment Plan: Supportive care for URI symptoms. Encouraged hearing aid use. Discussed options such as [facility] Cora Mccloud New referral completed and faxed today; blank form given to Abdirahman raya. [facility] Consider a Day Program like the [employer] in [place] Previously: Offered and declined seroquel; Familu doesn't think there yet. Reviewed aricept and namenda. I do not recommend d/t side effects and he needs someone to give him meds. Could trial Exelon patch. Could consider Clonidine patch for BP control. Oversight on admin would be required. Lulu Matson and Abdirahman ([phone]) should be points of contact Sign up for portal by proxy for better access RTO 2 months, sooner as needed Total time spent caring for the patient today was 60 minutes. This includes time spent before the visit reviewing the chart, time spent during the visit, and time spent after the visit on documentation, reviewing laboratory results, diagnostic imaging, medications, performing a medically necessary evaluation, counseling on diagnoses, care coordination, ordering appropriate tests, ordering appropriate medications, review of tests performed by other providers, reporting test results with the patient, communication with other healthcare providers. [facility] Medical History Sinusitis No pertinent family history Surgical History No pertinent past surgical history Social History (Updated 12/11/24 @ 11:17 by Luz Serra) Household Members: None Both parents involved: No Caregiver staying overnight: No Housing: Apartment Are you a primary respiratory care assistant to a significant other at home: No Do you presently have visiting nurse or other home services: No 75 years or older and lives alone: No Alcohol intake: never Patient Tobacco Use Status: Former Tobacco user e-Cigarette/Vaping Use: Never Used Second Hand Smoke Exposure: No service: Yes Current occupational status: retired Cognitive needs: Yes Hearing needs: No Vision needs: Yes (wear glasses) Questionnaire Thrive Questionnaire Date Thrive assessed: 10/02/24 I am a: Patient What is your living situation today?: I have a steady place to live Within the past 12 months, did the food you bought not last and you didn't have the money to get more?: Often true Within the past 12 months, did you worry whether your food would run out before you got money to buy more?: I choose not to answer this question Do you have trouble paying for medicines?: No Do you have trouble getting transportation to medical appointments?: No Do you have trouble paying your heating and electricity bill?: No Do you have trouble taking care of your child, family member or friend?: No Do you have trouble with day-to-day activities such as bathing, preparing meals, shopping, managing finances, etc.?: No Are you currently unemployed and looking for a job?: No Are you interested in more education?: No Please select the resources that you would like help with: None Currently or been in a relationship where the following occur: No concerns reported THRIVE Score: 1 GILES-7 AMB Questionnaire GILES-7 Date GILES - 7 assessed: 10/02/24 Source: Developed by Drs. Zen Cortez, Sheila Morales, Joel Song and colleagues, with an educational oscar from [employer]. Physical exam (Primary Care) Vital Signs: Last Vital Signs Temp 97.1 F 01/26/25 10:42 Pulse 72 01/26/25 10:42 Resp 13 01/26/25 10:42 BP 142/78 H 01/26/25 10:42 Pulse Ox 98 01/26/25 10:42 Oxygen Delivery Method Room Air 01/26/25 10:42 BMI result Body Mass Index 25.1 Tobacco/Smoking Status: Tobacco use Status Tobacco use date assessed 01/09/25 01/26/25 10:38 Patient Tobacco Use Status Former Tobacco user 01/26/25 10:38 e-Cigarette/Vaping Use Never Used 01/26/25 10:38 Thrive Assessment: Date of Thrive Assessment Date Thrive assessed 10/02/24 01/26/25 10:38 Currently or been in a relationship where the following occur: No concerns reported Coding Level of Care Code Est Pt Level 5 (80648) Complex EM visit Add On G2211 Diagnoses Primary hypertension I10 Hypertension type: primary hypertension Sensorineural hearing loss (SNHL) of both ears H90.3 Hearing loss type: sensorineural Laterality: bilateral Mild dementia without behavioral disturbance, psychotic disturbance, mood disturbance, or anxiety, unspecified dementia type F03.A0 Dementia type: unspecified type Dementia severity: mild Dementia behavioral or psychological symptom: without behavioral, psychotic, or mood disturbance or anxiety Viral URI J06.9 Assessment & Plan Assessment & Plan (1) HTN (hypertension): Code(s): I10 - Essential (primary) hypertension Category: Medical Qualifiers: Hypertension type: primary hypertension Qualified Code(s): I10 - Essential (primary) hypertension (2) Hearing loss: Code(s): H91.90 - Unspecified hearing loss, unspecified ear Category: Medical Qualifiers: Hearing loss type: sensorineural Laterality: bilateral Qualified Code(s): H90.3 - Sensorineural hearing loss, bilateral (3) Dementia: Code(s): F03.90 - Unspecified dementia, unspecified severity, without behavioral disturbance, psychotic disturbance, mood disturbance, and anxiety Category: Medical Qualifiers: Dementia type: unspecified type Dementia severity: mild Dementia behavioral or psychological symptom: without behavioral, psychotic, or mood disturbance or anxiety Qualified Code(s): F03.A0 - Unspecified dementia, mild, without behavioral disturbance, psychotic disturbance, mood disturbance, and anxiety (4) Viral URI: Code(s): J06.9 - Acute upper respiratory infection, unspecified Plan . Patient Instructions: Discussed options such as [facility] in home services Consider a Day Program like the [email or web address] in [place] Previously: Offered and declined seroquel; Familu doesn't think there yet. Reviewed aricept and namenda. I do not recommend d/t side effects and he needs someone to give him meds. Could trial Exelon patch. Could consider Clonidine patch for BP control. Oversight on admin would be required. Lulu Matson and Abdirahman ([phone]) should be points of contact Sign up for portal by proxy for better access RTO 2 months, sooner as needed
[2025-01-26 10:42] VITALS: BP 142/78; PULSE 72; RESP 13; TEMP 36.2; O2SAT 98; BMI 25.1
== END 2025-01-26 11:16 | disposition home or self-care (01) ==
LOC: HO.HMCFM 10:33
PROVIDERS: PCP Nurse Practitioner Family; Visit Provider Nurse Practitioner Family
DX: I10 Essential (primary) hypertension (principal); H90.3 Sensorineural hearing loss, bilateral; F03.A0 Unspecified dementia, mild, without behavioral disturbance, psychotic disturbance, mood disturbance, and anxiety; J06.9 Acute upper respiratory infection, unspecified

== ENCOUNTER → 2025-01-26 10:32 | Outpatient (BNVA) | payer MEDICARE, SELFPAY | PROVIDERS: PCP Nurse Practitioner Family; Visit Provider Nurse Practitioner Family | DX: I10 Essential (primary) hypertension (principal); H90.3 Sensorineural hearing loss, bilateral; F03.A0 Unspecified dementia, mild, without behavioral disturbance, psychotic disturbance, mood disturbance, and anxiety; J06.9 Acute upper respiratory infection, unspecified | CPT/HCPCS: 99212 ==

== ENCOUNTER 2025-03-24 13:52 | Outpatient (REF) | payer MEDICARE, SELFPAY ==
--- NOTE | ~2025-03-24 | US_ITS ---
CLINICAL HISTORY: N40.0 - Benign prostatic hyperplasia without lower urinary tract symptoms Ultrasound kidneys. COMPARISON: None provided. Technique: Real time sonographic imaging, including color-flow imaging, was performed by the button tacker. Multiple bilingual call center representative static images were saved for review. FINDINGS: Right kidney: Cortical medullary differentiation is maintained. Normal color flow by Doppler. No calculus or focal parenchymal abnormality identified. No hydronephrosis. Right kidney size: 10.4 x 5.7 x 4.8 cm Left kidney: Cortical medullary differentiation is maintained. Normal color flow by Doppler. No calculus or focal parenchymal abnormality identified. No hydronephrosis. Left kidney size: 11.8 x 5.7 x 5.3 cm The urinary bladder partially contracted. Prevoid volume: 37 mL Postvoid volume: Not applicable. Prostate is enlarged measuring 5.6 x 5.9 x 4.3 cm. Lesion adjacent to the prostate or exophytic extension of the prostate present measuring 3.5 x 2.1 x 3.0 cm. IMPRESSION: 1. Limited study secondary to contraction of the urinary bladder. Patient was rescheduled for imaging of the urinary bladder. 2. No evidence of renal obstruction. 3. Prostatomegaly. Indeterminate lesion adjacent to the prostate or exophytic extension of the prostate measuring up to 3.5 cm. This could be better evaluated when urinary bladder is reimage. Alternatively prostate MR may be helpful for further characterization. This document has been electronically signed by: Ricky Bermudez MD on 03/25/2025 14:12:59
== END 2025-03-24 13:53 | disposition home or self-care (01) ==
LOC: HO.US 13:52
PROVIDERS: PCP Nurse Practitioner Family; Visit Provider Nurse Practitioner Family
DX: N40.0 Benign prostatic hyperplasia without lower urinary tract symptoms (principal); I86.1 Scrotal varices
CPT/HCPCS: 76775

== ENCOUNTER → 2025-03-24 13:54 | Outpatient (BNV) | payer MEDICARE, SELFPAY | PROVIDERS: PCP Nurse Practitioner Family; Visit Provider Radiology Diagnostic Radiology | DX: N40.0 Benign prostatic hyperplasia without lower urinary tract symptoms (principal) | CPT/HCPCS: 76775 ==

== ENCOUNTER 2025-03-30 09:18 | Outpatient (AMB) | payer MEDICARE, SELFPAY ==
--- NOTE | 2025-03-30 09:21 | A.OFFPC_ITS ---
Vital Signs 03/30/25 09:25 Height 5 ft 6 in Weight 152 lb 2 oz BMI 24.6 BP 124/72 Blood Pressure Location Rt brachial Position Sitting Respiration 12 Pulse 56 Pulse Source Pulse Oximeter Temp 97.3 F Temp Source Oral Pulse Oximetry (%) 99 Oxygen Delivery Method Room Air Intake Visit Reasons: 2 mo 30 min routine fu Intake Note: Routine follow up. Patient c/o left side chest px x 2 days. Apparel Rental Clerk Required: No Allergies No Known Allergies Allergy (Mild, Verified 03/30/25 09:28) NOT APPLICABLE Medication List - Last Reconciled 03/30/25 by Salud Jeter, SLITTER PROCESSED FILM- albuterol sulfate 90 mcg/actuation inhalation clonidine 1 patch transdermal QWEEK diclofenac sodium 1% 2 grams topical QID Tobacco use date assessed: 03/30/25 Fall risk assessment: No Falls in past year Last assessed Fall Risk: 03/30/25 Dental Screening Dental Screen Date: 03/30/25 Did you have a dental visit in the last 12 months?: Yes Did you have a dental problem in the last 6 months where you did not have access to dental care?: No Was dental information given to patient?: Patient has dentist HPI HPI Comments History of Present Illness Details Luke 79 y/o M with ADHD, Dementia , GERD, rhi norrhea, OA, BPH, epididymitis/varicocele/hydrocele/scrotal hernia, HTN, Anemia, CAD (Carotid US mild atherosclerotic plaque 2022, CT pelvis 10/2023 calcific atherosclerotic changes are present in the aorta and iliofemoral vessels.) Asthma/COPD, NILDA s/p repair of detached retinaL 2009, bilat cataracts, L inguinal hernia FHx: 3 children 2 boys 1 gir; Brother age 82 with prostate ca 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 Hypertension: - The patient was placed on a clonidine patch at his last visit to manage his blood pressure. - He has not been using the patch consis tently. - Oral blood pressure medications have b een discontinued. - The prescription was for one patch per week for three months, for a total of 12 patches. Dementia: - The patient's dementia is noted to be progressing. - [facility], and the intake has been completed and the consult note reviewed. - He cont to drive despite license revoc ation completed by myself a few months ago. Edu provided. - w/ poor insight Arthritis of shoulder L: - The patient reports some pain in his s houlder. - A previous X-ray of the shoulder was n egative for any acute findings. - The discomfort is attributed to a smal l amount of arthritis. - He reports sometimes sleeping on his l eft side, which is where the affected shoulder is. Past Medical History - Hypertension - Progressing dementia - Arthritis of the shoulder Review of Systems - General: Reports good appetite and goo d sleep. - Neurological: Denies falls. - Musculoskeletal: Reports some pain in the left shoulder. Physical Exam General: Well developed, well nourished, in no acute distress. Appears stated age. Accompanied by , Suly. Declined to have son called during visit. Head: Normocephalic, atraumatic. Eyes: Pupils are equal, round and reactive to light and accommodation. Conjunctivae are clear. Vision grossly normal. Lungs: Clear to auscultation bilaterally. No rales, rhonchi or wheeze noted. Good air flow in all machado. Heart: Regular rate and rhythm. No murmurs, click, rubs or gallops are noted. Musculoskeletal: Joints are nontender, without swelling, redness, or effusions Pulses: Peripheral pulses are equal and palpable bilaterally. Extremities: No clubbing, cyanosis nor edema is noted. Neuro: Alert, pleasant, forgetful Psych: Mood and affect appropriate. Results - Consults: An intake with the [facility] was completed, and the consult note was reviewed. Medical Decision Making The patient is an 79-year-old male with progressing dementia and hypertension, seen for a home disease management visit. His blood pressure management is a primary concern, and the clonidine patch was chosen for ease of administration given his cognitive status, though adherence has been inconsistent. The patient's left shoulder discomfort is attributed to arthritis, as a prior X- ray ruled out acute fracture or dislocation. Management will be conservative with as-needed Tylenol and topical comfort measures like heat or ice. Preventative care was addressed with the administration of the influenza vaccine after discussion and obtaining verbal consent. The patient has good family support, which is beneficial for his care coordination, particularly regarding medication administration. A follow-up appointment will be scheduled. Plan 1. Hypertension - Continue clonidine patch, applied once weekly. - Patient and family were re-educated on the importance of consistent use and the proper application of the patch to the back, alternating sites to prevent scratching it off. 2. Dementia - w/ poor insight ? memory impairme nt herself; support services have been offered. He should not be driving d/t his cognition. - The patient's condition is noted to be progressing. - Reviewed the consult note from the [facility]. - Will continue to monitor. - Discussed Exelon patch previously; did not order today as i am not sure this would be applied, as the the clonidine patch is not. I called the HCP, Dano, left detailed message on machine, Provided my secure email for future communi cation. Previously: Encouraged hearing aid use. Discussed options such as [facility] Cora Joelterson New referral completed and faxed today; blank form given to son, Abdirahman. [facility] Care in home services Consider a Day Program like the [facility] in [facility] [place] and Abdirahman ([phone]) should be points of contact Health Care Proxy Invocation Health Care Proxy Declaration: ISalud NP, on the date cited below, have determined that, Sukhdeep Sarmiento, lacks the capacity to make or communicate, informed health care decision. This determination is made in accordance with accepted standards of medical judgment and pursuant to [place] 201[place], the [place] Health Care Proxy Law. The cause, nature, extent and probable duration of the patient's inapacity are described below: Cause: Dementia Probable Duration of Patient's Incapacity: Lifelong 3. Arthritis Of Shoulder, L - For pain, Tylenol is the preferred med ication to be taken as needed. - The application of heat or ice to the affected area is also recommended for symptomatic relief. - The patient was educated that these me asures will help manage discomfort but will not cure the underlying arthritis. 4. Influenza Vaccination - Administered the influenza vaccine dur ing the visit. - Recommended administering the injectio n on the right side to avoid discomfort in the arthritic left shoulder. Patient Instructions - A family member should apply one cloni dine patch to your back each week to help control your blood pressure. - Make sure to place the patch in a diff erent spot each week, preferably where you cannot scratch it. - For shoulder pain, you can take Tyleno l if needed. - You can also apply a heating pad or ic e pack to your shoulder for comfort. - You received your flu shot today. - Please stop at the motel front desk attendant to sched ule a follow-up appointment in 3 mo for sAWV, sooner PRN Consent Patient was informed and verbally consented to the use of an ambient scribe for clinic note documentation during this visit. Total time spent caring for the patient today was 40 minutes. This includes time spent before the visit reviewing the chart, time spent during the visit, and time spent after the visit on documentation, reviewing laboratory results, diagnostic imaging, medications, performing a medically necessary evaluation, counseling on diagnoses, care coordination, ordering appropriate tests, ordering appropriate medications, review of tests performed by other providers, reporting test results with the patient, communication with other healthcare providers. [facility] Medical History Sinusitis No pertinent family history Surgical History No pertinent past surgical history Social History (Updated 12/11/24 @ 11:17 by Luz Serra) Household Members: None Both parents involved: No Caregiver staying overnight: No Housing: Apartment Are you a primary patient care specialist to a significant other at home: No Do you presently have visiting nurse or other home services: No 75 years or older and lives alone: No Alcohol intake: never Patient Tobacco Use Status: Former Tobacco user e-Cigarette/Vaping Use: Never Used Second Hand Smoke Exposure: No service: Yes Current occupational status: retired Cognitive needs: Yes Hearing needs: No Vision needs: Yes (wear glasses) Questionnaire Thrive Questionnaire Date Thrive assessed: 10/02/24 I am a: Patient What is your living situation today?: I have a steady place to live Within the past 12 months, did the food you bought not last and you didn't have the money to get more?: Often true Within the past 12 months, did you worry whether your food would run out before you got money to buy more?: I choose not to answer this question Do you have trouble paying for medicines?: No Do you have trouble getting transportation to medical appointments?: No Do you have trouble paying your heating and electricity bill?: No Do you have trouble taking care of your child, family member or friend?: No Do you have trouble with day-to-day activities such as bathing, preparing meals, shopping, managing finances, etc.?: No Are you currently unemployed and looking for a job?: No Are you interested in more education?: No Please select the resources that you would like help with: None Currently or been in a relationship where the following occur: No concerns reported THRIVE Score: 1 GILES-7 AMB Questionnaire GILES-7 Date GILES - 7 assessed: 10/02/24 Source: Developed by Drs. Zen Cortez, Sheila Morales, Joel Song and colleagues, with an educational oscar from [employer]. Physical exam (Primary Care) Vital Signs: Last Vital Signs Temp 97.3 F 03/30/25 09:25 Pulse 56 03/30/25 09:25 Resp 12 03/30/25 09:25 BP 124/72 03/30/25 09:25 Pulse Ox 99 03/30/25 09:25 Oxygen Delivery Method Room Air 03/30/25 09:25 BMI result Body Mass Index 24.6 Tobacco/Smoking Status: Tobacco use Status Tobacco use date assessed 03/30/25 03/30/25 09:23 Patient Tobacco Use Status Former Tobacco user 03/30/25 09:23 e-Cigarette/Vaping Use Never Used 03/30/25 09:23 Thrive Assessment: Date of Thrive Assessment Date Thrive assessed 10/02/24 03/30/25 09:23 Currently or been in a relationship where the following occur: No concerns reported Coding Level of Care Code Est Pt Level 5 (82145) Complex EM visit Add On G2211 Diagnoses Primary hypertension I10 Hypertension type: primary hypertension Mild dementia without behavioral disturbance, psychotic disturbance, mood disturbance, or anxiety, unspecified dementia type F03.A0 Dementia behavioral or psychological symptom: without behavioral, psychotic, or mood disturbance or anxiety Dementia severity: mild Dementia type: unspecified type Influenza vaccination administered at current visit Z23 Osteoarthritis of left shoulder M19.012 Issue of incapacity certificate Z02.71 Assessment & Plan Assessment & Plan (1) HTN (hypertension): Code(s): I10 - Essential (primary) hypertension Category: Medical Qualifiers: Hypertension type: primary hypertension Qualified Code(s): I10 - Essential (primary) hypertension (2) Dementia: Code(s): F03.90 - Unspecified dementia, unspecified severity, without behavioral disturbance, psychotic disturbance, mood disturbance, and anxiety Category: Medical Qualifiers: Dementia behavioral or psychological symptom: without behavioral, psychotic, or mood disturbance or anxiety Dementia severity: mild Dementia type: unspecified type Qualified Code(s): F03.A0 - Unspecified dementia, mild, without behavioral disturbance, psychotic disturbance, mood disturbance, and anxiety (3) Influenza vaccination administered at current visit: Onset Date: ~03/30/25 Code(s): Z23 - Encounter for immunization Category: Medical (4) Osteoarthritis of left shoulder: Code(s): M19.012 - Primary osteoarthritis, left shoulder Category: Medical (5) Issue of incapacity certificate: Onset Date: ~03/30/25 Code(s): Z02.71 - Encounter for disability determination Category: Medical Plan . Orders: Orders Influenza [id number] Immunization Today Z23 - Encounter for immunization Medications: New Fluarix [id number] (PF) (flu vac ts (6mos up)-PF) 0.5 mL IM ONCE 0.5 mL 0RF NS Z23 - Encounter for immunization
--- NOTE | 2025-03-30 09:21 | MHC.PC.OV ---
Intake Visit Reasons: 2 mo 30 min routine fu Allergies No Known Allergies Allergy (Mild, Verified 01/26/25 10:45) NOT APPLICABLE Tobacco use date assessed: 01/09/25 Dental Screening Dental Screen Date: 12/15/24 [facility] Medical History Sinusitis No pertinent family history Surgical History (Reviewed 12/03/24 @ 10:55 by Liseth Green [facility]) No pertinent past surgical history Social History (Updated 12/11/24 @ 11:17 by Luz Serra) Household Members: None Both parents involved: No Caregiver staying overnight: No Housing: Apartment Are you a primary childcare center administrator to a significant other at home: No Do you presently have visiting nurse or other home services: No 75 years or older and lives alone: No Alcohol intake: never Patient Tobacco Use Status: Former Tobacco user e-Cigarette/Vaping Use: Never Used Second Hand Smoke Exposure: No service: Yes Current occupational status: retired Cognitive needs: Yes Hearing needs: No Vision needs: Yes (wear glasses) Questionnaire Thrive Questionnaire Date Thrive assessed: 10/02/24 I am a: Patient What is your living situation today?: I have a steady place to live Within the past 12 months, did the food you bought not last and you didn't have the money to get more?: Often true Within the past 12 months, did you worry whether your food would run out before you got money to buy more?: I choose not to answer this question Do you have trouble paying for medicines?: No Do you have trouble getting transportation to medical appointments?: No Do you have trouble paying your heating and electricity bill?: No Do you have trouble taking care of your child, family member or friend?: No Do you have trouble with day-to-day activities such as bathing, preparing meals, shopping, managing finances, etc.?: No Are you currently unemployed and looking for a job?: No Are you interested in more education?: No Please select the resources that you would like help with: None Currently or been in a relationship where the following occur: No concerns reported THRIVE Score: 1 GILES-7 AMB Questionnaire GILES-7 Date GILES - 7 assessed: 10/02/24 Source: Developed by Sheila SheffieldW. Andrew, Joel Song and colleagues, with an educational oscar from [employer]. Physical exam (Primary Care) Tobacco/Smoking Status: Tobacco use Status Tobacco use date assessed 01/09/25 01/26/25 10:38 Patient Tobacco Use Status Former Tobacco user 01/26/25 10:38 e-Cigarette/Vaping Use Never Used 01/26/25 10:38 Thrive Assessment: Date of Thrive Assessment Date Thrive assessed 10/02/24 01/26/25 10:38 Currently or been in a relationship where the following occur: No concerns reported Coding
[2025-03-30 09:25] VITALS: BP 124/72; PULSE 56; RESP 12; TEMP 36.3; O2SAT 99; BMI 24.6
== END 2025-03-30 09:47 | disposition home or self-care (01) ==
LOC: HO.HMCFM 09:19
PROVIDERS: PCP Nurse Practitioner Family; Visit Provider Nurse Practitioner Family
DX: I10 Essential (primary) hypertension (principal); F03.A0 Unspecified dementia, mild, without behavioral disturbance, psychotic disturbance, mood disturbance, and anxiety; Z23 Encounter for immunization; M19.012 Primary osteoarthritis, left shoulder; Z02.71 Encounter for disability determination

== ENCOUNTER → 2025-03-30 09:18 | Outpatient (BNVA) | payer MEDICARE, SELFPAY | PROVIDERS: PCP Nurse Practitioner Family; Visit Provider Nurse Practitioner Family | DX: I10 Essential (primary) hypertension (principal); F03.A0 Unspecified dementia, mild, without behavioral disturbance, psychotic disturbance, mood disturbance, and anxiety; M19.012 Primary osteoarthritis, left shoulder; Z23 Encounter for immunization; Z02.71 Encounter for disability determination | CPT/HCPCS: 90471; 90656; 99212 ==

== ENCOUNTER 2025-05-20 13:17 | Outpatient (REF) | payer MEDICARE, SELFPAY ==
--- NOTE | ~2025-05-20 | US_ITS ---
EXAMINATION: US PELVIS LIMITED (BLADDER) CLINICAL INFORMATION: BPH, enlarged prostate, varicocele. COMPARISON: None available. TECHNIQUE: Real-time imaging of the bladder. FINDINGS: BLADDER: Well-distended. There is a posterosuperior diverticulum measuring 0.4 x 0.5 x 0.6 cm. Minimal wall thickening at 4 mm. Bilateral ureteral jets are demonstrated. Prevoid bladder volume is 126 mL. Postvoid bladder volume is 18 mL. Prostate is enlarged, with estimated volume of 86 mL. US/US bladder IMPRESSION: 1. Mild bladder wall thickening with a focal diverticulum posterosuperiorly measuring up to 6 mm. 2. Normal ureteral jets seen bilaterally. 3. Prevoid volume 126 mL. Postvoid volume of 18 mL. 4. Prostate is markedly enlarged at estimated volume of 86 mL. Electronically signed by: Saurabh Guillermo MD 05/20/2025 02:[address] [facility]
== END 2025-05-20 13:18 | disposition home or self-care (01) ==
LOC: HO.US 13:17
PROVIDERS: PCP Nurse Practitioner Family; Visit Provider Nurse Practitioner Family
DX: N40.0 Benign prostatic hyperplasia without lower urinary tract symptoms (principal); I86.1 Scrotal varices
CPT/HCPCS: 76857

== ENCOUNTER → 2025-05-20 13:55 | Outpatient (BNV) | payer MEDICARE, SELFPAY | PROVIDERS: PCP Nurse Practitioner Family; Visit Provider Radiology Diagnostic Radiology | DX: N40.0 Benign prostatic hyperplasia without lower urinary tract symptoms (principal); N32.3 Diverticulum of bladder; N32.89 Other specified disorders of bladder | CPT/HCPCS: 76857 ==